=== PATIENT | female | born 1940 | race Caucasian/White ===

== ENCOUNTER 2016-04-20 12:02 | Outpatient (CLI) | payer MEDICARE, OTHER | END 2016-04-20 12:03 | disposition home or self-care (01) | DX: Z12.31 Encounter for screening mammogram for malignant neoplasm of breast (principal); Z80.3 Family history of malignant neoplasm of breast ==

== ENCOUNTER 2017-04-19 10:06 | Outpatient (CLI) | payer MEDICARE, OTHER ==
--- NOTE | 2017-04-20 13:35 | Mammography Report ---
DATE OF SERVICE: 04/19/2017 DIGITAL BILATERAL SCREENING MAMMOGRAM: 04/19/2017 COMPARISON: Mammogram 04/20/2016. INDICATION: Screening mammography. TECHNIQUE: Bilateral MLO and CC breast views. FINDINGS: The breast parenchyma is heterogeneously dense, which may limit the sensitivity of mammography. No dominant mass, architectural distortion, or concerning clustered microcalcifications are seen. IMPRESSION: BIRADS CATEGORY 1-NEGATIVE. RECOMMENDATION: ANNUAL SCREENING MAMMOGRAM. STANDARD QUALIFYING STATEMENTS: 1. This examination was reviewed with the aid of Computer-Aided Detection (CAD) . 2. A negative or benign imaging report should not delay biopsy if clinically suspicious findings are present. Consider surgical consultation if warranted. More than 5% of cancers are not identified by imaging. 3. Dense breasts may obscure an underlying neoplasm. TD: 04/20/2017 14:34 ALINA
== END 2017-04-19 10:07 | disposition home or self-care (01) ==
LOC: DI.S 10:06
PROVIDERS: ATTEND Internal Medicine
DX: Z12.31 Encounter for screening mammogram for malignant neoplasm of breast (principal)
CPT/HCPCS: 77067

== ENCOUNTER 2018-02-15 09:21 | Outpatient (CLI) | payer MEDICARE, OTHER ==
[2018-02-15 18:02] LABS: ALBUMIN 4.2 g/dL (3.2-5.5); ALBUMIN/GLOBULIN RATIO 1.8 (1.0-2.2); ALKALINE PHOSPHATASE 69 IU/L (42-121); ALT ALANINE AMINOTRANSFERASE 13 IU/L (10-60); AST ASPARTATE AMINOTRANSFERASE 18 IU/L (10-42); BILIRUBIN,TOTAL 0.9 mg/dL (0.2-1.0); BUN - BLOOD UREA NITROGEN 22 mg/dL (6-20); CARBON DIOXIDE - CO2 28 mmol/L (21-32); CHLORIDE 103 mmol/L (101-111); CHOL/HDL RATIO 3.5 (<4.4); CHOLESTEROL 216 mg/dL; CREATININE 0.8 mg/dL (0.4-1.0); GFR - MDRD 70 (>89); GLUCOSE 88 mg/dL (70-100); HDL CHOLESTEROL 62 mg/dL; LDL CHOLESTEROL,CALCULATED 145 mg/dL; LDL/HDL RATIO 2.3 (<4.4); SODIUM 138 mmol/L (135-145); TOTAL PROTEIN 6.6 g/dL (6.7-8.2); VLDL CHOLESTEROL 9 mg/dL
== END 2018-02-15 09:22 | disposition home or self-care (01) ==
LOC: LAB.F 09:21
PROVIDERS: ATTEND Internal Medicine
DX: E78.00 Pure hypercholesterolemia, unspecified (principal)
CPT/HCPCS: 36415; 80053; 80061; 83721

== ENCOUNTER 2018-07-15 15:59 | Outpatient (CLI) | payer MEDICARE, OTHER ==
--- NOTE | 2018-07-16 17:13 | Mammography Report ---
Reason: SCREENING MAMMO Procedure Date: 07/15/2018 Accession Number: [id number] / [id number] Procedure: SATINDER - Screening Mammo w/Andrés CPT Code: FULL RESULT: EXAM: Screening Mammo w/Andrés DATE: 07/15/2018 4:33 PM CLINICAL HISTORY: Routine screening. No reported personal history of breast cancer. Family history breast cancer in mother at age 72. TECHNIQUE: (B) - Bilateral Bilateral CC and MLO views were obtained. COMPARISON: 04/19/2017 through 09/02/2016 PARENCHYMAL PATTERN: (D) - The breasts demonstrate heterogeneously dense fibroglandular parenchyma bilaterally. FINDINGS: Bilateral breasts: There are no suspicious masses, calcifications, or areas of distortion. Stable mild left-sided nipple retraction. IMPRESSION: Benign findings. BI-RADS category 2 RECOMMENDATION: (ANNUAL) - Recommend routine annual screening mammography. BI-RADS CATEGORY: (2) - Benign Findings STANDARD QUALIFYING STATEMENTS: 1. This examination was not reviewed with the aid of Computer-Aided Detection (CAD). 2. A negative or benign imaging report should not preclude biopsy if clinically suspicious findings are present. 3. Dense breasts may obscure an underlying neoplasm. 4. This examination was reviewed with the aid of 3D breast imaging (tomosynthesis).
== END 2018-07-15 16:00 | disposition home or self-care (01) ==
LOC: DI 15:59
DX: Z12.31 Encounter for screening mammogram for malignant neoplasm of breast (principal); Z80.3 Family history of malignant neoplasm of breast
CPT/HCPCS: 77063; 77067

== ENCOUNTER 2018-10-19 17:31 | Emergency (ER) | payer MEDICARE, OTHER ==
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
[2018-10-19 18:33] LABS: BASOPHILS % (AUTO) 0.3 %; EOSINOPHILS # (AUTO) 0.2 10^3/uL (0.0-0.7); EOSINOPHILS % (AUTO) 2.5 %; LYMPHOCYTES # (AUTO) 1.4 10^3/uL (1.5-3.5); LYMPHOCYTES % (AUTO) 23.5 %; MEAN CORPUSCULAR HEMOGLOBIN 30.7 pg (27.0-31.0); MEAN CORPUSCULAR HGB CONC 32.3 g/dL (32.0-36.0); MEAN PLATELET VOLUME 8.5 fL (7.9-10.8); MONOCYTES # (AUTO) 0.6 10^3/uL (0.0-1.0); NEUTROPHILS # (AUTO) 3.9 10^3/uL (1.5-6.6); NEUTROPHILS % (AUTO) 64.5 %; PLT - PLATELET COUNT 242 10^3/uL (130-450); RED BLOOD COUNT 4.24 10^6/uL (4.20-5.40); RED CELL DISTRIBUTION WIDTH 13.3 % (12.0-15.0); WHITE BLOOD COUNT 6.1 x10^3/uL (4.8-10.8)
[2018-10-19 18:47] LABS: ALBUMIN 4.3 g/dL (3.2-5.5); ALBUMIN/GLOBULIN RATIO 1.5 (1.0-2.2); BILIRUBIN,TOTAL 0.6 mg/dL (0.2-1.0); CALCIUM 9.3 mg/dL (8.5-10.3); TOTAL PROTEIN 7.2 g/dL (6.7-8.2)
[2018-10-19 18:48] LABS: BILIRUBIN,URINE NEGATIVE (NEGATIVE); GLUCOSE, URINE (UA) NEGATIVE (NEGATIVE); KETONES,URINE (UA) NEGATIVE (NEGATIVE); LEUKOCYTE ESTERASE, URINE NEGATIVE (NEGATIVE); NITRITE,URINE NEGATIVE (NEGATIVE); OCCULT BLOOD,URINE NEGATIVE (NEGATIVE); PH,URINE 5.5 PH (5.0-7.5); PROTEIN,URINE NEGATIVE (NEGATIVE); UROBILINOGEN,URINE 0.2 (NORMAL) E.U./dL (NORMAL)
[2018-10-19 18:49] LABS: CLARITY,URINE CLEAR (CLEAR)
[2018-10-19 19:00] VITALS: BP 145/71
== END 2018-10-19 19:00 | disposition home or self-care (01) ==
LOC: ED 17:31
DX: T23.262A Burn of second degree of back of left hand, initial encounter (principal); T31.0 Burns involving less than 10% of body surface; X12.XXXA Contact with other hot fluids, initial encounter; R53.83 Other fatigue; I10 Essential (primary) hypertension; E78.00 Pure hypercholesterolemia, unspecified
CPT/HCPCS: 36415; 80053; 81001; 81003; 83690; 85025; 87086; 99282

== ENCOUNTER 2019-04-14 09:26 | Outpatient (CLI) | payer MEDICARE, OTHER ==
[2019-04-14 18:19] LABS: ALBUMIN 4.3 g/dL (3.2-5.5); ALBUMIN/GLOBULIN RATIO 1.5 (1.0-2.2); ALKALINE PHOSPHATASE 61 IU/L (42-121); ALT ALANINE AMINOTRANSFERASE 11 IU/L (10-60); AST ASPARTATE AMINOTRANSFERASE 17 IU/L (10-42); BILIRUBIN,TOTAL 0.7 mg/dL (0.2-1.0); BUN - BLOOD UREA NITROGEN 26 mg/dL (6-20); CALCIUM 9.5 mg/dL (8.5-10.3); CARBON DIOXIDE - CO2 28 mmol/L (21-32); CHLORIDE 102 mmol/L (101-111); CHOL/HDL RATIO 2.6 (<4.4); CHOLESTEROL 194 mg/dL; GFR - MDRD 54 (>89); GLUCOSE 88 mg/dL (70-100); HDL CHOLESTEROL 74 mg/dL; LDL CHOLESTEROL,CALCULATED 112 mg/dL; LDL/HDL RATIO 1.5 (<4.4); SODIUM 139 mmol/L (135-145); TOTAL PROTEIN 7.2 g/dL (6.7-8.2); VLDL CHOLESTEROL 8 mg/dL
== END 2019-04-14 09:27 | disposition home or self-care (01) ==
LOC: LAB.S 09:26
PROVIDERS: ATTEND Internal Medicine
DX: E78.00 Pure hypercholesterolemia, unspecified (principal)
CPT/HCPCS: 36415; 80053; 80061; 83721

== ENCOUNTER 2019-09-13 16:00 | Emergency (ER) | payer MEDICARE, OTHER ==
[2019-09-13 16:07] VITALS: BP 168/75
--- NOTE | 2019-09-13 16:28 | ED Physician Documentation ---
History of Present Illness - Stated complaint Stated Complaint: SINUS PX - Chief complaint Chief Complaint: Heent - History obtained from History obtained from: Patient - History of Present Illness Timing: How many days ago (4) Pain level max: 4 Pain level now: 3 - Additonal information Additional information: 78-year-old female presents with left-sided sinus pressure for the past 3 days. No fever. No cough. Has not taken anything for this. Nothing makes it better or worse. Review of Systems Constitutional: denies: Fever, Chills Respiratory: denies: Cough GI: denies: Vomiting, Diarrhea Skin: denies: Rash Musculoskeletal: denies: Neck pain, Back pain Neurologic: denies: Focal weakness, Numbness, Headache PD PAST MEDICAL HISTORY - Past Medical History Cardiovascular: Hypertension, High cholesterol Respiratory: None Neuro: None Endocrine/Autoimmune: None GI: None RECOOPERER: None : None HEENT: None Psych: None Musculoskeletal: Chronic back pain Derm: None - Past Surgical History Past Surgical History: Yes Ortho: Other - Present Medications Home Medications: Ambulatory Orders Medication Instructions Recorded Confirmed Aspirin 81 mg PO DAILY 12/18/15 12/18/15 Lovastatin [Altoprev] 40 mg PO DAILY 12/18/15 12/18/15 Nitrofurantoin Monohyd/M-Cryst 100 mg PO BID 5 Days capsule 12/18/15 [Macrobid 100 mg Capsule] Verapamil HCl [Verapamil ER] 240 mg PO DAILY 12/18/15 12/18/15 trandolapriL [Trandolapril] 4 mg PO DAILY 12/18/15 12/18/15 Cetirizine [ZyrTEC] 10 mg PO DAILY PRN #10 tablet 09/13/19 Fluticasone [Flonase] 1 sprays ALVARO BID PRN #1 bottle 09/13/19 - Allergies Allergies/Adverse Reactions: Allergies Allergy/AdvReac Type Severity Reaction Status Date / Time cephalexin monohydrate * AdvReac Cramps Verified 10/19/18 17:39 [From Keflex] - Social History Does the pt smoke?: No Smoking Status: Never smoker Does the pt drink ETOH?: No Does the pt have substance abuse?: No - Immunizations Immunizations are current?: Yes - POLST Patient has POLST: No PD ED PE NORMAL - Vitals Vital signs reviewed: Yes - General General: Alert and oriented X 3, No acute distress - HEENT HEENT: PERRL, Ears normal, Moist mucous membranes, Pharynx benign, Other (mild TTP L frontal sinus. o/w normal exam.) - Neck Neck: Supple, no meningeal sign - Cardiac Cardiac: RRR - Respiratory Respiratory: No respiratory distress, Clear bilaterally - Abdomen Abdomen: Soft, Non tender, Non distended - Derm Derm: Warm and dry - Neuro Neuro: Alert and oriented X 3 - Psych Psych: Normal mood, Normal affect Results - Vitals Vitals: Vital Signs - 24 hr 09/13/19 16:03 Temperature 36.7 C Heart Rate 71 Respiratory 16 Rate Blood Pressure 168/75 H O2 Saturation 97 Oxygen O2 Source Room air PD MEDICAL DECISION MAKING - ED course Complexity details: considered differential, d/w patient ED course: Patient with sinusitis. likely viral. We will treat with decongestants. She is well-appearing, nontoxic. No evidence of bacterial infection. Patient counseled regarding signs and symptoms for which I believe and urgent re- evaluation would be necessary. Patient with good understanding of and agreement to plan and is comfortable going home at this time This document was made in part using voice recognition software. While efforts are made to proofread this document, sound alike and grammatical errors may occur. Departure - Departure Disposition: 01 Home, Self Care Clinical Impression: Sinusitis Qualifiers: Sinusitis location: unspecified location Chronicity: acute Recurrence: non- recurrent Qualified Code(s): J01.90 - Acute sinusitis, unspecified Condition: Good Instructions: ED Sinusitis No Abx Follow-Up: Serafin Cottrell MD [Primary Care Provider] - Within 1 week Prescriptions: Cetirizine [ZyrTEC] 10 mg PO DAILY PRN #10 tablet PRN Reason: Nasal Congestion Fluticasone [Flonase] 1 sprays ALVARO BID PRN #1 bottle PRN Reason: Nasal Congestion Comments: Use the medications as prescribed. You should improve in the next 4 to 5 days. Return if you worsen. If you develop fevers or symptoms lasting longer than 10 days you may require an antibiotic.
== END 2019-09-13 16:37 | disposition home or self-care (01) ==
LOC: ED 16:00
DX: J01.90 Acute sinusitis, unspecified (principal); I10 Essential (primary) hypertension; Z79.82 Long term (current) use of aspirin
CPT/HCPCS: 99282; 99284

== ENCOUNTER 2019-10-20 14:49 | Outpatient (CLI) | payer MEDICARE, OTHER ==
--- NOTE | 2019-10-21 11:49 | Mammography Report ---
BILATERAL DIGITAL SCREENING MAMMOGRAM 3D/2D: 10/20/2019 CLINICAL: Routine screening. Comparison is made to exams dated: 07/15/2018 mammogram, 04/19/2017 mammogram, and 04/20/2016 mammogram - [facility]. The tissue of both breasts is heterogeneously dense. This may lower th e sensitivity of mammography. There is an irregular equal density asymmetry with an indistinct margin in the left breast at 5 o'atif ck middle depth. No other significant masses, calcifications, or other findings are seen in either breast. IMPRESSION: INCOMPLETE: NEEDS ADDITIONAL IMAGING EVALUATION The irregular equal density asymmetry in the left breast is indeterminate. Mediolateral and spot com pression views as well as additional views with possible ultrasound are recommended. This exam was interpreted at Station ID: [id number]. NOTE: For mammograms, a report in lay terms will be sent to the patient. Approximately 15% of breast malignancies will not be visualized mammographically. In the management of a palpable breast mass, a negative mammogram must not discourage biopsy of a clinically suspicious lesion. Electronically Signed By: Tip Santamaria M.D. ddyemi/penrad:10/20/2019 15:47:56 ACR BI-RADS Category 0: Incomplete 3340F PARENCHYMAL PATTERN: (D) - The breast(s) demonstrate(s) heterogeneously dense fibroglandular rachel talbot. BI-RADS CATEGORY: (0) - 0 Mammo and [place] [id number] Immediate follow-up LATERALITY: (B)
== END 2019-10-20 14:50 | disposition home or self-care (01) ==
LOC: DI 14:49
DX: Z12.31 Encounter for screening mammogram for malignant neoplasm of breast (principal)
CPT/HCPCS: 77063; 77067

== ENCOUNTER 2019-12-04 13:29 | Outpatient (CLI) | payer MEDICARE, OTHER ==
--- NOTE | 2019-12-05 08:09 | Mammography Report ---
UNILATERAL LEFT DIGITAL DIAGNOSTIC MAMMOGRAM 3D/2D: 12/04/2019 CLINICAL: Patient returns today to evaluate a density in the left breast. Comparison is made to exams dated: 10/20/2019 mammogram, 07/15/2018 mammogram, 04/19/2017 mammogram, and mammogram - [facility]. The tissue of left breast is heterogeneously dense . This may lower the sensitivity of mammography. There is a mass with a spiculated margin in the left breast at 6 o'clock middle depth. This is seen in additional views. No other significant masses or calcifications are seen in the breast. IMPRESSION: INCOMPLETE: NEEDS ADDITIONAL IMAGING EVALUATION The mass in the left breast is indeterminate. A targeted ultrasound of the left breast is recommended and will be performed immediately following this exam. This exam was interpreted at Station ID: [id number]. NOTE: For mammograms, a report in lay terms will be sent to the patient. Approximately 15% of breast malignancies will not be visualized mammographically. In the management of a palpable breast mass, a negative mammogram must not discourage biopsy of a clinically suspicious lesion. Electronically Signed By: Ashley Ritter M.D. lk/:12/04/2019 14:27:59 ACR BI-RADS Category 0: Incomplete 3340F PARENCHYMAL PATTERN: (D) - The breast(s) demonstrate(s) heterogeneously dense fibroglandular paryoandy talbot. BI-RADS CATEGORY: (0) - 0 RECOMMENDATION: (ADDMAM) - Recommend additional mammographic views. [id number] Immediate follow-up LATERALITY: (B)
--- NOTE | 2019-12-05 08:09 | Ultrasound Report ---
LIMITED ULTRASOUND OF LEFT BREAST: 12/04/2019 CLINICAL: Patient returns today to evaluate a focal asymmetry in the left breast. Comparison is made to exams dated: 12/04/2019 mammogram and 10/20/2019 mammogram - [facility]. Ultrasound of was performed on the area of interest. There is a 2.2 cm x 0.8 cm x 1.1 cm irregular mass in the left breast at 4 o'clock anterior depth. T his irregular mass is hypoechoic. This correlates with mammography findings. The left axilla was interogated and normal appearing lymph nodes are visualized. IMPRESSION: SUSPICIOUS OF MALIGNANCY No left axillary adenopathy. The 2.2 cm x 0.8 cm x 1.1 cm irregular mass in the left breast is at a moderate suspicion for maligna ncy. An ultrasound guided biopsy is recommended. This exam was interpreted at Station ID: [id number]. SUMMARY: This was discussed with the patient by the radiologist Dr. Beltran at the time of the exam. Electronically Signed By: Ashley Ritter M.D. lk/:12/04/2019 15:35:13 Ultrasound BI-RADS: 4b Moderate suspicion of malignancy BI-RADS CATEGORY: (4b) - Mod Susp Biopsy follow-up [id number] Immediate follow-up LATERALITY: (B)
== END 2019-12-04 13:30 | disposition home or self-care (01) ==
LOC: DI 13:29
PROVIDERS: ATTEND Internal Medicine
DX: N63.23 Unspecified lump in the left breast, lower outer quadrant (principal)
CPT/HCPCS: 76642

== ENCOUNTER 2020-02-10 14:41 | Outpatient (CLI) | payer MEDICARE, OTHER ==
--- NOTE | 2020-02-10 18:26 | XRAY Report ---
PROCEDURE: Mandible Bilat INDICATIONS: FACIAL PAIN, ATYPICAL TECHNIQUE: 3 views of the mandible were acquired. COMPARISON: None FINDINGS: Bones: No fractures or dislocations. There is an impacted left posterior mandibular molar with quest ionable surrounding ill-defined periapical lucency. Soft tissues: Visualized sinuses appear clear. No suspicious soft tissue densities. IMPRESSION: 1. No radiographic evidence of osseous metastases. 2. Possible periapical lucency around the left posterior mandibular impacted/unerupted molar. Dental consult recommended. Reviewed by: Zora Garrison MD on 02/10/2020 6:24 PM PDT Approved by: Zora Garrison MD on 02/10/2020 6:24 PM PDT Station ID: [id number]
== END 2020-02-10 14:42 | disposition home or self-care (01) ==
LOC: DI.S 14:41
PROVIDERS: ATTEND Internal Medicine
DX: G50.1 Atypical facial pain (principal)
CPT/HCPCS: 70110

== ENCOUNTER 2020-03-30 09:44 | Outpatient (CLI) | payer MEDICARE, OTHER ==
[2020-03-30 15:58] LABS: BASOPHILS % (AUTO) 0.4 %; EOSINOPHILS # (AUTO) 0.1 10^3/uL (0.0-0.7); EOSINOPHILS % (AUTO) 2.5 %; HGB - HEMOGLOBIN 12.7 g/dL (12.0-16.0); LYMPHOCYTES # (AUTO) 1.2 10^3/uL (1.5-3.5); LYMPHOCYTES % (AUTO) 25.4 %; MEAN CORPUSCULAR HEMOGLOBIN 31.8 pg (27.0-31.0); MEAN CORPUSCULAR HGB CONC 32.7 g/dL (32.0-36.0); MONOCYTES # (AUTO) 0.5 10^3/uL (0.0-1.0); MONOCYTES % (AUTO) 10.3 %; NEUTROPHILS % (AUTO) 61.2 %; PLT - PLATELET COUNT 298 10^3/uL (130-450); RED CELL DISTRIBUTION WIDTH 13.5 % (12.0-15.0); WHITE BLOOD COUNT 4.8 x10^3/uL (4.8-10.8)
[2020-03-30 16:09] LABS: ALBUMIN 4.1 g/dL (3.2-5.5); ALBUMIN/GLOBULIN RATIO 1.4 (1.0-2.2); ALKALINE PHOSPHATASE 55 IU/L (42-121); ALT ALANINE AMINOTRANSFERASE 14 IU/L (10-60); AST ASPARTATE AMINOTRANSFERASE 17 IU/L (10-42); BUN - BLOOD UREA NITROGEN 26 mg/dL (6-20); CALCIUM 9.4 mg/dL (8.5-10.3); CARBON DIOXIDE - CO2 26 mmol/L (21-32); CHLORIDE 104 mmol/L (101-111); CHOL/HDL RATIO 2.6 (<4.4); CHOLESTEROL 182 mg/dL; GLUCOSE 94 mg/dL (70-100); HDL CHOLESTEROL 70 mg/dL; LDL CHOLESTEROL,CALCULATED 102 mg/dL; LDL/HDL RATIO 1.5 (<4.4); SODIUM 139 mmol/L (135-145); VLDL CHOLESTEROL 10 mg/dL
== END 2020-03-30 09:45 | disposition home or self-care (01) ==
LOC: LAB.S 09:44
PROVIDERS: ATTEND Internal Medicine
DX: I10 Essential (primary) hypertension (principal)
CPT/HCPCS: 36415; 80053; 80061; 83721; 85025

== ENCOUNTER 2020-05-28 23:02 | Outpatient (CLI) | payer MEDICARE, OTHER | END 2020-05-28 23:03 | disposition critical access hospital (66) | LOC: EMS 23:02 | PROVIDERS: ATTEND Emergency Medicine | DX: R07.89 Other chest pain (principal); R51.9 Headache, unspecified | CPT/HCPCS: A0425; A0427 ==

== ENCOUNTER 2020-05-28 23:47 | Emergency (ER) | payer MEDICARE, OTHER ==
[2020-05-29 00:21] LABS: BASOPHILS % (AUTO) 0.2 %; EOSINOPHILS # (AUTO) 0.2 10^3/uL (0.0-0.7); EOSINOPHILS % (AUTO) 3.9 %; HGB - HEMOGLOBIN 13.6 g/dL (12.0-16.0); LYMPHOCYTES # (AUTO) 0.7 10^3/uL (1.5-3.5); LYMPHOCYTES % (AUTO) 15.1 %; MEAN CORPUSCULAR HEMOGLOBIN 31.2 pg (27.0-31.0); MEAN CORPUSCULAR HGB CONC 32.5 g/dL (32.0-36.0); MEAN CORPUSCULAR VOLUME 96.1 fL (81.0-99.0); MEAN PLATELET VOLUME 8.2 fL (7.9-10.8); MONOCYTES # (AUTO) 0.6 10^3/uL (0.0-1.0); MONOCYTES % (AUTO) 13.3 %; NEUTROPHILS # (AUTO) 3.2 10^3/uL (1.5-6.6); NEUTROPHILS % (AUTO) 67.1 %; PLT - PLATELET COUNT 201 10^3/uL (130-450); RED BLOOD COUNT 4.36 10^6/uL (4.20-5.40); RED CELL DISTRIBUTION WIDTH 13.2 % (12.0-15.0); WHITE BLOOD COUNT 4.8 x10^3/uL (4.8-10.8)
[2020-05-29 00:31] LABS: ALBUMIN 4.5 g/dL (3.2-5.5); ALBUMIN/GLOBULIN RATIO 1.4 (1.0-2.2); BILIRUBIN,TOTAL 0.7 mg/dL (0.2-1.0); CALCIUM 9.6 mg/dL (8.5-10.3); CREATININE 1.1 mg/dL (0.4-1.0); TOTAL PROTEIN 7.8 g/dL (6.7-8.2)
--- NOTE | 2020-05-29 00:33 | ED Physician Documentation ---
PD HPI CHEST PAIN - Stated complaint Stated Complaint: CP/ PAGE - Chief complaint Chief Complaint: Neuro - History obtained from History obtained from: Patient - History of Present Illness Timing - onset: Enter time (22:00), Other (tonight) Timing - onset during: Rest Timing - duration: Minutes Timing - details: Abrupt onset, Now resolved (chest pain), Still present in ED (PAGE) Quality: Pain Location: Substernal Radiation: No: Jaw, Neck, Back, Abdominal, Left upper extremity, Right upper extremity Improved by: Nothing Worsened by: Other (no exacerbating factors) Associated symptoms: Other (PAGE). No: Shortness of air, Diaphoresis, Nausea, Vomiting, Feeling faint / dizzy, General Weakness, Palpitations, Cough Similar symptoms before: Has not had sx before Recently seen: Not recently seen - Additional information Additional information: BIBA. tonight while lying in bed watching TV, patient had sudden onset midline chest pain and right-sided PAGE. denies having similar symptoms in the past. chest pain has resolved, mild PAGE persists. given NTG en route by medics and 81mg x 4 ASA. had negative stress test approximately 15 years ago and she has no known CAD Review of Systems Constitutional: reports: Reviewed and negative Eyes: reports: Reviewed and negative Cardiac: reports: Chest pain / pressure. denies: Palpitations, Pedal edema, Calf pain Respiratory: reports: Reviewed and negative GI: reports: Reviewed and negative Musculoskeletal: denies: Extremity swelling Neurologic: reports: Headache. 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 : None HEENT: None Psych: None Musculoskeletal: Chronic back pain Derm: None - Past Surgical History Past Surgical History: Yes Ortho: Other - Present Medications Home Medications: Ambulatory Orders Medication Instructions Recorded Confirmed Verapamil HCl [Verapamil ER] 240 mg PO DAILY 12/18/15 05/29/20 trandolapriL [Trandolapril] 4 mg PO DAILY 12/18/15 05/29/20 Pravastatin Sodium [Pravachol] 20 mg PO QPM 05/29/20 05/29/20 - Allergies Allergies/Adverse Reactions: Allergies Allergy/AdvReac Type Severity Reaction Status Date / Time cephalexin monohydrate * AdvReac Cramps Verified 05/28/20 23:55 [From Keflex] - Social History Does the pt smoke?: No Smoking Status: Never smoker Does the pt drink ETOH?: No Does the pt have substance abuse?: No - Immunizations Immunizations are current?: Yes - POLST Patient has POLST: No PD ED PE NORMAL - Vitals Vital signs reviewed: Yes - General General: Alert and oriented X 3, No acute distress, Well developed/nourished - HEENT HEENT: Moist mucous membranes - Neck Neck: Supple, no meningeal sign - Cardiac Cardiac: RRR, No murmur, No gallop, No rub - Respiratory Respiratory: No respiratory distress, Clear bilaterally - Abdomen Abdomen: Soft, Non tender - Derm Derm: Normal color, Warm and dry - Extremities Extremities: No edema Results - Vitals Vitals: Oxygen O2 Source Room air - EKG (time done) No standard instances Rate: Rate (enter#) (68) Rhythm: NSR [place]: Normal Intervals: Normal [place] QRS: Normal Ischemia: Normal ST segments - Labs Labs: Laboratory Tests 05/29/20 05/29/20 05/29/20 00:17 00:17 00:17 WBC 4.8 RBC 4.36 Hgb 13.6 Hct 41.9 MCV 96.1 MCH 31.2 H MCHC 32.5 RDW 13.2 Plt Count 201 MPV 8.2 Neut # (Auto) 3.2 Lymph # (Auto) 0.7 L [place] # (Auto) 0.6 Eos # (Auto) 0.2 Baso # (Auto) 0.0 Absolute Nucleated RBC 0.00 Nucleated RBC % 0.0 Sodium 137 Potassium 4.1 Chloride 99 L Carbon Dioxide 27 Anion Gap 11.0 BUN 27 H Creatinine 1.1 H Estimated GFR (MDRD) 48 L Glucose 103 H Calcium 9.6 Total Bilirubin 0.7 AST 18 ALT 15 Alkaline Phosphatase 63 Troponin I High Sens 8.2 Total Protein 7.8 Albumin 4.5 Globulin 3.3 Albumin/Globulin Ratio 1.4 Lipase 30 - Rads (name of study) chest xray Radiology: Prelim report reviewed, See rad report PD MEDICAL DECISION MAKING - ED course Complexity details: reviewed results, re-evaluated patient, considered differential, d/w patient ED course: remained chest pain free during ED stay and had only mild residual PAGE. reassuring test results including EKG, CXR, blood tests including negative high sensitivity troponin. results d/w patient. she is comfortable with d/c home, instructed to return if symptoms reoccur, follow up with primary care provider even if asymptomatic Departure - Departure Disposition: 01 Home, Self Care Clinical Impression: Chest pain Qualifiers: Chest pain type: unspecified Qualified Code(s): R07.9 - Chest pain, unspecified Condition: Good Instructions: ED Chest Pain Atypical Unkn Cause Follow-Up: Amauri Clay MD [Primary Care Provider] - Discharge Date/Time: 05/29/20 01:26
[2020-05-29 00:55] VITALS: BP 127/67
--- NOTE | 2020-05-29 10:06 | XRAY Report ---
PROCEDURE: Chest 1 View X-Ray INDICATIONS: Chest pain TECHNIQUE: One view of the chest was acquired. COMPARISON: None available FINDINGS: Surgical changes and devices: Left chest wall clips are seen. Lungs and pleura: No pleural effusions or pneumothorax. Lungs are clear. Mediastinum: The aorta is prominent and tortuous. The cardiac contours are within normal limits. Bones and chest wall: No suspicious bony lesions. There is a presumed right humeral head bone island . Age-appropriate degenerative changes are seen. Overlying soft tissues appear unremarkable. IMPRESSION: No acute abnormality can be seen on this portable chest study. Postoperative and degenerative changes are seen. Note: No significant discrepancy from the preliminary report. Reviewed by: Spencer Guajardo MD on 05/29/2020 9:05 AM [facility] Approved by: Spencer Guajardo MD on 05/29/2020 9:05 AM [facility] Station ID: [id number]
== END 2020-05-29 01:26 | disposition home or self-care (01) ==
LOC: EDUNIT# → ED 23:47 → SUPCPDRO 23:47 → ED 05-29 01:26
DX: R07.89 Other chest pain (principal); R51.9 Headache, unspecified; I10 Essential (primary) hypertension
CPT/HCPCS: 36415; 80053; 83690; 84484; 85025; 93005; 99284

== ENCOUNTER 2020-07-16 16:08 | Outpatient (CLI) | payer MEDICARE, OTHER ==
[2020-07-16 19:56] LABS: INR 1.1 (0.8-1.2); PT - PROTHROMBIN TIME 12.2 secs (9.9-12.6)
[2020-07-16 20:00] LABS: BASOPHILS % (AUTO) 0.6 %; EOSINOPHILS # (AUTO) 0.1 10^3/uL (0.0-0.7); EOSINOPHILS % (AUTO) 1.1 %; HCT - HEMATOCRIT 38.7 % (37.0-47.0); HGB - HEMOGLOBIN 12.7 g/dL (12.0-16.0); LYMPHOCYTES # (AUTO) 1.1 10^3/uL (1.5-3.5); LYMPHOCYTES % (AUTO) 20.1 %; MEAN CORPUSCULAR HEMOGLOBIN 31.1 pg (27.0-31.0); MEAN CORPUSCULAR HGB CONC 32.8 g/dL (32.0-36.0); MEAN CORPUSCULAR VOLUME 94.9 fL (81.0-99.0); MEAN PLATELET VOLUME 8.9 fL (7.9-10.8); MONOCYTES # (AUTO) 0.6 10^3/uL (0.0-1.0); MONOCYTES % (AUTO) 11.1 %; NEUTROPHILS # (AUTO) 3.6 10^3/uL (1.5-6.6); NEUTROPHILS % (AUTO) 66.9 %; PLT - PLATELET COUNT 242 10^3/uL (130-450); RED BLOOD COUNT 4.08 10^6/uL (4.20-5.40); RED CELL DISTRIBUTION WIDTH 13.4 % (12.0-15.0); WHITE BLOOD COUNT 5.3 x10^3/uL (4.8-10.8)
[2020-07-16 20:30] LABS: THYROID STIMULATING HORMONE 1.95 uIU/mL (0.34-5.60)
[2020-07-16 20:32] LABS: ALBUMIN 4.5 g/dL (3.2-5.5); ALBUMIN/GLOBULIN RATIO 1.8 (1.0-2.2); CALCIUM 9.4 mg/dL (8.5-10.3); POTASSIUM 4.3 mmol/L (3.5-5.0)
--- OUTSIDE RECORDS SUMMARY | 2020-07-21 02:12 | EXTERNAL MEDICAL SUMMARY RPT | Continuity of Care Document ---
:1940 Demographics Phone Unavailable Preferred Language Unknown Marital Status Unknown Rastafari Affiliation Unknown Race Unknown Ethnic Group Unknown Author Organization [facility] Address [address] [place] [address] Phone Social History date description facility [id number]
== END 2020-07-16 16:09 | disposition home or self-care (01) ==
LOC: LAB.S 16:08
PROVIDERS: ATTEND Internal Medicine
DX: I10 Essential (primary) hypertension (principal); R23.8 Other skin changes; L60.9 Nail disorder, unspecified; E78.00 Pure hypercholesterolemia, unspecified; M79.81 Nontraumatic hematoma of soft tissue
CPT/HCPCS: 36415; 80053; 84443; 85025; 85610

== ENCOUNTER 2020-08-26 08:00 | Outpatient (CLI) | payer MEDICARE, OTHER ==
--- NOTE | 2020-08-26 15:17 | XRAY Report ---
PROCEDURE: Knee 3 View RT INDICATIONS: DJD, RIGHT KNEE TECHNIQUE: 3 views of the right knee(s) were acquired. COMPARISON: None. FINDINGS: Bones: No fractures or dislocations. No suspicious bony lesions. There is mild medial and patellofe moral compartment narrowing with minimal periarticular osteophytes. No erosions. Soft tissues: Mild joint effusion. No suspicious soft tissue calcifications. IMPRESSION: Mild medial and patellofemoral arthritic change. Reviewed by: Princess Norton MD on 08/26/2020 3:15 PM PDT Approved by: Princess Norton MD on 08/26/2020 3:15 PM PDT Station ID: [id number]
== END 2020-08-26 23:59 | disposition home or self-care (01) ==
LOC: DI.S 08:00
PROVIDERS: ATTEND Emergency Medicine
DX: M17.11 Unilateral primary osteoarthritis, right knee (principal)

== ENCOUNTER 2021-01-05 08:46 | Outpatient (CLI) | payer MEDICARE, OTHER ==
[2021-01-05 14:34] LABS: ALBUMIN 4.2 g/dL (3.2-5.5); ALBUMIN/GLOBULIN RATIO 1.6 (1.0-2.2); BILIRUBIN,TOTAL 0.9 mg/dL (0.2-1.0); CALCIUM 9.3 mg/dL (8.5-10.3); POTASSIUM 4.4 mmol/L (3.5-5.0); TOTAL PROTEIN 6.8 g/dL (6.7-8.2)
[2021-01-05 14:42] LABS: BASOPHILS % (AUTO) 0.7 %; EOSINOPHILS # (AUTO) 0.3 10^3/uL (0.0-0.7); EOSINOPHILS % (AUTO) 5.7 %; HCT - HEMATOCRIT 37.3 % (37.0-47.0); LYMPHOCYTES % (AUTO) 23.2 %; MEAN CORPUSCULAR HEMOGLOBIN 31.3 pg (27.0-31.0); MEAN CORPUSCULAR HGB CONC 32.2 g/dL (32.0-36.0); MEAN CORPUSCULAR VOLUME 97.1 fL (81.0-99.0); MEAN PLATELET VOLUME 9.1 fL (7.9-10.8); MONOCYTES # (AUTO) 0.5 10^3/uL (0.0-1.0); MONOCYTES % (AUTO) 12.3 %; NEUTROPHILS # (AUTO) 2.6 10^3/uL (1.5-6.6); NEUTROPHILS % (AUTO) 57.9 %; PLT - PLATELET COUNT 231 10^3/uL (130-450); RED BLOOD COUNT 3.84 10^6/uL (4.20-5.40); RED CELL DISTRIBUTION WIDTH 13.3 % (12.0-15.0); WHITE BLOOD COUNT 4.4 x10^3/uL (4.8-10.8)
== END 2021-01-05 08:47 | disposition home or self-care (01) ==
LOC: LAB.S 08:46
PROVIDERS: ATTEND Internal Medicine
DX: I10 Essential (primary) hypertension (principal)
CPT/HCPCS: 36415; 80053; 85025

== ENCOUNTER 2021-10-25 20:23 | Outpatient (CLI) | payer MEDICARE, OTHER | END 2021-10-25 20:24 | disposition EMS.NT | LOC: EMS 20:23 | DX: R11.0 Nausea (principal) ==

== ENCOUNTER 2021-12-22 12:29 | Outpatient (CLI) | payer MEDICARE, BC ==
[~2021-12-22 12:29] MED LIST: GADOBUTROL 7.5 MMOL/7.5 ML VIAL ONE
[2021-12-22] MEDS ORDERED: GADOBUTROL 7.5 MMOL/7.5 ML VIAL IVP ONE (16:03)
--- NOTE | 2021-12-22 18:17 | MRI Report ---
PROCEDURE: Lumbar Spine W/WO INDICATIONS: BILATERAL SCIATICA CONTRAST: IV CONTRAST: Gadavist ml: 5.9 TECHNIQUE: Noncontrast sagittal T1 spin echo and T2 fast spin echo, sagittal STIR, axial T1 and T2 fast spin ech o through the lumbar spine. In cases with scoliosis, additional coronal T2 fast spin echo may be per formed. After the administration of contrast, sagittal and axial T1 spin echo with fat saturation th rough the lumbar spine. COMPARISON: None. FINDINGS: Image quality: Excellent. Alignment and curvature: There is normal bony alignment. Marrow: Decompressive laminectomies noted at L2 and L3. In interbody fusion at L3-4 with posterior ro d and screw instrumentation at L4-5 and left lateral instrumentation at L3-4. Spinal cord: Conus medullaris terminates at the level. Visualized spinal cord demonstrates normal signal, without suspicious enhancement. Paraspinous soft tissues: No paravertebral masses or abnormal enhancement. Right renal cyst noted. T12-L1: Normal in appearance. L1-L2: Disc space narrowing and posterior disc bulge, hypertrophic facet joints and the mentum fla vum laxity results in severe central stenosis. Moderate bilateral foraminal stenosis L2-L3: Disc space narrowing and cervical disc bulge present. No central stenosis. Severe bilateral foraminal stenosis. L3-L4: Discectomy and fusion. No central stenosis. Moderate to severe bilateral foraminal stenosis present. L4-L5: Circumferential disc bulge present. No central stenosis. Mild bilateral foraminal stenosis L5-S1: Circumferential disc bulge. Disc height is maintained. No central stenosis. No foraminal alyssa nosis. IMPRESSION: Degenerative disc disease and arthropathy at L1-2 results in severe central and moderate bilateral fo raminal stenosis. Decompressive laminectomies L2-L3 with interbody fusion at L3-4 and instrumentation at L3-4 and L4-5. Reviewed by: Ubaldo Bourgeois MD on 12/22/2021 5:16 PM EMELYN Approved by: Ubaldo Bourgeois MD on 12/22/2021 5:16 PM AKSHANI Station ID: [id number]
== END 2021-12-22 12:30 | disposition home or self-care (01) ==
LOC: DI 12:29
PROVIDERS: ATTEND Internal Medicine
DX: M47.816 Spondylosis without myelopathy or radiculopathy, lumbar region (principal); M48.061 Spinal stenosis, lumbar region without neurogenic claudication; Z98.1 Arthrodesis status
CPT/HCPCS: 72158; A9585

== ENCOUNTER 2022-05-19 09:06 | Outpatient (CLI) | payer MEDICARE, OTHER ==
--- NOTE | 2022-05-19 12:02 | CT Report ---
PROCEDURE: LUMBAR SPINE WO INDICATIONS: LUMBAR STENOISIS TECHNIQUE: Noncontrast 3 mm thick sections acquired from the T12 level to the sacrum. Sagittal and coronal refo rmats were constructed. For radiation dose reduction, the following was used: automated exposure co ntrol, adjustment of mA and/or kV according to patient size. COMPARISON: None. FINDINGS: Image quality: Excellent. Bones: Postoperative changes of ACDF at L3-4 and posterior fixation at L4-5. No acute vertebral body compression fractures. No suspicious lytic or blastic bony lesions. Central spinal caliber is of n ormal overall caliber. No pars defects. T12-L1: No disc space narrowing. No significant disc bulge. The foramina and central canal are paten t. L1-L2: Diffuse disc bulge and facet hypertrophy cause severe bilateral foraminal stenosis. The verónica tral canal has severe stenosis. L2-L3: Disc space narrowing and disc osteophytes. Status post laminectomy at this level. The varsha shahnaz have moderate bilateral foraminal stenosis. The central canal is patent. L3-L4: Postoperative changes of discectomy. There are disc osteophytes and facet hypertrophy causin g moderate bilateral foraminal stenosis. Status post laminectomy at this level. The central canal is patent. L4-L5: Mild grade 1 anterolisthesis. The foramina and central canal are patent. L5-S1: Diffuse disc bulge with no significant foraminal or central canal stenosis. Soft tissues: No retroperitoneal masses or hematomas. Visualized aorta is normal in caliber. IMPRESSION: 1. Postoperative changes without hardware complication. 2. L1-2 degenerative disc disease causing severe bilateral foraminal stenosis and severe central suyapa l stenosis. Reviewed by: Naseem Clinton on 05/19/2022 12:00 PM PST Approved by: Naseem Clinton on 05/19/2022 12:00 PM PST Station ID: [id number]
--- NOTE | 2022-05-19 12:24 | XRAY Report ---
PROCEDURE: Lumbar Spine Complete INDICATIONS: BILATERAL LEG PAIN TECHNIQUE: 5 views of the lumbar spine were acquired. COMPARISON: None. FINDINGS: Bones: 5 spa-oun-souxosb vertebrae are present. Pedicular screws in L4 and L5 are seen without rods . There has been discectomy at L3-4. No vertebral body height loss. Disc space narrowing at L1-2 and L2-3, worse at L2-3. No instability with flexion or extension. Sacroiliac joints have mild degenerati ve changes. Anterolisthesis of L3-4. Soft tissues: Overlying bowel gas pattern is normal. No suspicious soft tissue calcifications. The aorta has atherosclerotic calcifications. IMPRESSION: 1. Postoperative changes from L3 through L5. 2. Disc disease of L1-2 and L2-3. 3. Anterolisthesis of L3-4. 4. Full range of motion with no instability with flexion or extension. Reviewed by: Naseem Clinton on 05/19/2022 12:22 PM PST Approved by: Naseem Clinton on 05/19/2022 12:22 PM PST Station ID: [id number]
== END 2022-05-19 09:07 | disposition home or self-care (01) ==
LOC: DI 09:06
PROVIDERS: ATTEND Neurological Surgery
DX: Z01.818 Encounter for other preprocedural examination (principal); M51.36 Other intervertebral disc degeneration, lumbar region; M47.816 Spondylosis without myelopathy or radiculopathy, lumbar region; M48.061 Spinal stenosis, lumbar region without neurogenic claudication; M43.16 Spondylolisthesis, lumbar region

== ENCOUNTER 2022-05-19 09:09 | Outpatient (CLI) | payer MEDICARE, BC ==
--- NOTE | 2022-05-19 10:48 | DEXA Report ---
PROCEDURE: Dexa Spine and/or Hip INDICATIONS: POST MENOPAUSAL TECHNIQUE: Dual energy x-ray absorptiometry (DXA) was performed on a Lob System. Regions measur ed are the AP Spine, femoral neck, and if needed forearm. COMPARISON: None. FINDINGS: Left Femoral Neck: Bone Mineral Density 0.66 g/cm/cm, T score -2.8, Left Hip: Bone Mineral Density 0.70 g/cm/cm,T score -2.4, Left forearm: Bone Mineral Density 0.4 to g/cm/cm, T score -4.2, (T score greater or equal to -1.0: NORMAL) (T score from -1.1 to -2.4: OSTEOPENIA) (T score less than or equal to -2.5 to: OSTEOPOROSIS) Impression: Osteoporosis of the left femoral neck and forearm, significantly elevated fracture risk. Osteopenia o f the left hip. Patients with diagnosis of osteoporosis or osteopenia should have regular bone mineral density assess ment. For those eligible for Medicare, routine testing is allowed once every 2 years. Testing frequ ency can be increased for patients who have rapidly progressing disease or for those who are receivin g medical therapy to restore bone mass. Reviewed by: Victor M Arguelles MD on 05/19/2022 10:47 AM PST Approved by: Victor M Arguelles MD on 05/19/2022 10:47 AM PST Station ID: [id number]
== END 2022-05-19 09:10 | disposition home or self-care (01) ==
LOC: DI 09:09
PROVIDERS: ATTEND Internal Medicine
DX: M81.0 Age-related osteoporosis without current pathological fracture (principal); Z78.0 Asymptomatic menopausal state

== ENCOUNTER 2022-10-03 14:46 | Outpatient (CLI) | payer MEDICARE, OTHER | END 2022-10-03 23:59 | disposition critical access hospital (66) | LOC: EMS 14:46 | DX: R06.02 Shortness of breath (principal); R06.2 Wheezing; R05.9 Cough, unspecified | CPT/HCPCS: A0425; A0427 ==

== ENCOUNTER 2022-10-03 15:20 | Inpatient (IN) | payer MEDICARE, OTHER ==
--- NOTE | 2022-10-03 15:23 | ED Physician Documentation ---
PD HPI DYSPNEA - Stated complaint Stated Complaint: SOA/WHEEZING - History obtained from History obtained from: Patient, EMS - History of Present Illness Timing - onset: How many days ago (4-5) Timing - onset during: Light activity Timing - duration: Days (4-5) Timing - details: Gradual onset, Still present Inciting event(s): URI. No: Out of meds Improved by: Inhaler/neb, Rest Worsened by: Exertion, Coughing Associated symptoms: Fever, Cough, Wheezing, Chest pain / discomfort. No: Hemoptysis, Bilateral edema Similar symptoms before: Has not had sx before (denies history of asthma nor COPD. Remote history of smoking (duration 40 years, quit or such).) Recently seen: Clinic (went to walk in and there found to be wheezing and sats 83% RA.) Review of Systems Constitutional: reports: Fever, Chills, Myalgias Nose: reports: Rhinorrhea / runny nose, Congestion Throat: denies: Sore throat Cardiac: denies: Chest pain / pressure, Palpitations Respiratory: reports: Dyspnea, Cough, Wheezing GI: reports: Nausea. denies: Abdominal Pain, Vomiting, Diarrhea Skin: denies: Rash Neurologic: denies: Altered mental status, Headache PD PAST MEDICAL HISTORY - Past Medical History Cardiovascular: Hypertension, High cholesterol Respiratory: None, Other (denies history of COPD/asthma. She states she is active with golfing and exercise without dyspnea/wheezing. 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 : None HEENT: None Psych: None Musculoskeletal: Chronic back pain Derm: None - Past Surgical History Past Surgical History: Yes Ortho: Other - Present Medications Home Medications: Ambulatory Orders Medication Instructions Recorded Confirmed Verapamil HCl [Verapamil ER] 240 mg PO DAILY 12/18/15 05/29/20 trandolapriL [Trandolapril] 4 mg PO DAILY 12/18/15 05/29/20 Pravastatin Sodium [Pravachol] 20 mg PO QPM 05/29/20 05/29/20 - Allergies Allergies/Adverse Reactions: Allergies Allergy/AdvReac Type Severity Reaction Status Date / Time cephalexin monohydrate * AdvReac Cramps Verified 05/28/20 23:55 [From Keflex] - Social History Does the pt smoke?: No Smoking Status: Never smoker Does the pt drink ETOH?: No Does the pt have substance abuse?: No - Immunizations Immunizations are current?: Yes - POLST Patient has POLST: No PD ED PE NORMAL - Vitals Vital signs reviewed: Yes - General General: Alert and oriented X 3, Well developed/nourished, Other (Initially with some work of breathing and prolonged expiratory phase with wheezing.) - Neck Neck: Supple, no meningeal sign, No adenopathy - Cardiac Cardiac: No murmur. No: RRR (tachycardic but regular) - Respiratory Respiratory: No: Clear bilaterally (coarse central bronchial sounds, hoarse cough. Diffuse exp weehzing. ) - Abdomen Abdomen: Soft, Non tender - Extremities Extremities: No edema, No calf tenderness / cord Results - Vitals Vitals: Vital Signs - 24 hr 10/03/22 10/03/22 10/03/22 15:20 15:34 15:59 Temperature 37.6 C Heart Rate 112 H 118 H 100 Respiratory 30 H 20 16 Rate Blood Pressure 178/72 H O2 Saturation 93 97 94 If not protocol : Oxygen Flow, liters/minute 10/03/22 10/03/22 10/03/22 16:08 16:11 16:28 Temperature Heart Rate 104 H 102 H Respiratory 17 18 14 Rate Blood Pressure 137/56 H O2 Saturation 95 If not protocol 2 : Oxygen Flow, liters/minute 10/03/22 10/03/22 10/03/22 17:22 17:37 17:55 Temperature Heart Rate 101 H 100 100 Respiratory 18 18 19 Rate Blood Pressure 145/64 H 121/53 L O2 Saturation 93 94 If not protocol 2 2 2 : Oxygen Flow, liters/minute 10/03/22 10/03/22 10/03/22 18:38 18:50 19:29 Temperature Heart Rate 123 H 119 H Respiratory 23 19 16 Rate Blood Pressure 143/59 H 148/60 H O2 Saturation 85 L 94 If not protocol 2 : Oxygen Flow, liters/minute Oxygen O2 Source Nasal cannula Oxygen Flow Rate 2 - EKG (time done) 15:23 EKG releavant findings:: EKG personally interpreted by author of this note. Relevant findings are: Rate: Rate (enter#) (108) Rhythm: Sinus tachycardia [place]: Normal Intervals: Normal AL QRS: Normal Ischemia: Normal ST segments. No: ST elevation c/w ischemia, ST depression Compare to prior EKG: Old EKG unavailable - Labs Labs: Laboratory Tests 10/03/22 10/03/22 10/03/22 15:50 18:54 18:54 WBC 8.3 RBC 4.10 L Hgb 12.7 Hct 38.6 MCV 94.1 MCH 31.0 MCHC 32.9 RDW 13.1 Plt Count 211 MPV 8.5 Neut # (Auto) 7.7 H Lymph # (Auto) 0.5 L [place] # (Auto) 0.1 Eos # (Auto) 0.0 Baso # (Auto) 0.0 Absolute Nucleated RBC 0.00 Nucleated RBC % 0.0 Sodium 137 Potassium 2.8 L Chloride 100 L Carbon Dioxide 25 Anion Gap 12.0 BUN 22 H Creatinine 1.1 H Estimated GFR (MDRD) 48 L Glucose 307 H Calcium 8.7 Total Bilirubin 0.5 AST 23 ALT 13 Alkaline Phosphatase 53 Total Protein 7.2 Albumin 3.8 Globulin 3.4 Albumin/Globulin Ratio 1.1 Lipase 24 Nasal Adenovirus (PCR) NOT DETECTED Nasal B. parapertussis DNA (PCR) NOT DETECTED Nasal Coronavir 229E PCR NOT DETECTED Nasal Coronavir HKU1 PCR NOT DETECTED Nasal Coronavir NL63 PCR NOT DETECTED Nasal Coronavir OC43 PCR NOT DETECTED Nasal Enterovir/Rhinovir PCR DETECTED A Nasal Influenza B PCR NOT DETECTED Nasal Influenza A PCR NOT DETECTED Nasal Parainfluen 1 PCR NOT DETECTED Nasal Parainfluen 2 PCR NOT DETECTED Nasal Parainfluen 3 PCR NOT DETECTED Nasal Parainfluen 4 PCR NOT DETECTED Nasal RSV (PCR) NOT DETECTED Nasal B.pertussis DNA PCR NOT DETECTED Nasal C.pneumoniae (PCR) NOT DETECTED Jong Human Metapneumo PCR NOT DETECTED Nasal M.pneumoniae (PCR) NOT DETECTED Nasal SARS-CoV-2 (PCR) NOT DETECTED - Rads (name of study) chest xray Relevant Findings:: Prelim report reviewed, EMP independent interpretation of test (no infiltrates.), See rad report PD Medical Decision Making - ED course Complexity details: considered differential, d/w patient ED course: The patient has upper respiratory viral type symptoms for a few days that has progressed with wheezing and hoarse cough. She was feeling quite short of breath and went to the walk-in clinic. Found to be hypoxic at 83%. Nebulizer treatment on route by EMS. Here she received 2 more nebulizer treatments and is adequately oxygenated with just nasal cannula. However off the nasal cannula she still goes to 85 to 88%. She was given Decadron and repeat nebulizer treatments. Consideration for antibiotic even with the positive test for viral illness given that she likely has some undiagnosed COPD. The patient is comfortable without any respiratory distress at this point. I did talk with the nighttime hospitalist and they will admit the patient to the hospital. Potassium level was returned at 2.8 will give supplemental potassium. Departure - Departure Disposition: [facility] DC/Xfer Clinical Impression: Viral URI with cough, Wheezing, Hypoxia Condition: Stable Record reviewed to determine appropriate education?: Yes Discharge Date/Time: 10/03/22 20:27
--- OUTSIDE RECORDS SUMMARY | 2022-10-03 15:48 | EXTERNAL MEDICAL SUMMARY RPT | Continuity of Care Document ---
Author Name Unknown Address [address] [place] [address] Phone Organization [facility] Address [address] [phone] Phone Care Team Providers Care Prosthetic Aides Teacher Name Role Phone Anitra Patient RegistrarCindy Unavailable Unavailable Medications date description facility 2022-10-03 00:00 [facility] 2022-10-03 00:00 [facility]rim[facility] [place] 2022-10-03 00:00 [facility]rimazole [facility] [place]
[2022-10-03] MEDS ORDERED: ALBUTEROL NEB 2.5 MG/3 ML INH STA (15:49)
[2022-10-03] MEDS ORDERED: dexAMETHasone 4 MG TABLET PO STA (15:49)
--- NOTE | 2022-10-03 16:16 | XRAY Report ---
PROCEDURE: Chest 1 View X-Ray INDICATIONS: chest pain TECHNIQUE: One view of the chest was acquired. COMPARISON: None. FINDINGS: Surgical changes and devices: Surgical clips are noted in left breast and left axilla. Lungs and pleura: No pleural effusions or pneumothorax. Lungs are clear. Mediastinum: Mediastinal contours appear normal. Heart size is normal. Bones and chest wall: No suspicious bony lesions. Overlying soft tissues appear unremarkable. IMPRESSION: No acute cardiopulmonary process. Reviewed by: Crispin Mancilla MD on 10/03/2022 4:14 PM PDT Approved by: Crispin Mancilla MD on 10/03/2022 4:14 PM PDT Station ID: [id number]
[2022-10-03 16:57] LABS: B. PARAPERTUSSIS- RESP PCR PAN NOT DETECTED; B. PERTUSSIS- RESP PCR PANEL NOT DETECTED; C. PNEUMONIAE- RESP PCR PANEL NOT DETECTED; CORONAVIRUS 229E-RESP PCR NOT DETECTED; CORONAVIRUS HKU1-RESP PCR NOT DETECTED; CORONAVIRUS NL63-RESP PCR NOT DETECTED; CORONAVIRUS OC43-RESP PCR NOT DETECTED; HUMAN METAPNEUMOVIRUS NOT DETECTED; INFLUENZA A- RESP PCR PANEL NOT DETECTED; INFLUENZA B - RESP PCR PANEL NOT DETECTED; M. PNEUMONIAE- RESP PCR PANEL NOT DETECTED; PARAINFLUENZA VIRUS 1 NOT DETECTED; PARAINFLUENZA VIRUS 2 NOT DETECTED; PARAINFLUENZA VIRUS 3 NOT DETECTED; PARAINFLUENZA VIRUS 4 NOT DETECTED; RHINOVIRUS/ENTEROVIRUS DETECTED; RSV- RESP PCR PANEL NOT DETECTED; SARS-CoV-2 -RESP PCR PANEL NOT DETECTED
[2022-10-03] MEDS ORDERED: IPRATROPIUM/ALBUTEROL 3 ML NEB INH STA (17:09)
[2022-10-03 18:59] LABS: BASOPHILS % (AUTO) 0.1 %; HCT - HEMATOCRIT 38.6 % (37.0-47.0); HGB - HEMOGLOBIN 12.7 g/dL (12.0-16.0); LYMPHOCYTES # (AUTO) 0.5 10^3/uL (1.5-3.5); LYMPHOCYTES % (AUTO) 5.6 %; MEAN CORPUSCULAR HGB CONC 32.9 g/dL (32.0-36.0); MEAN CORPUSCULAR VOLUME 94.1 fL (81.0-99.0); MEAN PLATELET VOLUME 8.5 fL (7.9-10.8); MONOCYTES # (AUTO) 0.1 10^3/uL (0.0-1.0); MONOCYTES % (AUTO) 0.8 %; NEUTROPHILS # (AUTO) 7.7 10^3/uL (1.5-6.6); PLT - PLATELET COUNT 211 10^3/uL (130-450); RED CELL DISTRIBUTION WIDTH 13.1 % (12.0-15.0); WHITE BLOOD COUNT 8.3 x10^3/uL (4.8-10.8)
[2022-10-03 19:12] LABS: ALBUMIN 3.8 g/dL (3.2-5.5); ALBUMIN/GLOBULIN RATIO 1.1 (1.0-2.2); BILIRUBIN,TOTAL 0.5 mg/dL (0.2-1.0); CALCIUM 8.7 mg/dL (8.5-10.3); CREATININE 1.1 mg/dL (0.4-1.0); POTASSIUM 2.8 mmol/L (3.5-5.0); TOTAL PROTEIN 7.2 g/dL (6.7-8.2)
[2022-10-03] MEDS ORDERED: POTASSIUM CHLOR 10 MEQ/100 ML 10 MEQ/100 ML BAG IV ONE (19:20)
[2022-10-03] MEDS ORDERED: POTASSIUM BICARB 25 MEQ TABLET PO STA (19:20)
--- NOTE | 2022-10-03 19:26 | HISTORY & PHYSICAL EXAMINATION ---
Chief Complaint - Chief Complaint Chief Complaint: Cough, Shortness of breath History of Present Illness - Admitted From Admitted From:: ER - History Obtained From Records Reviewed: Yes History obtained from: Pt, staff, chart Exam Limitations: H&P was conducted via video remotely, using Access Cart. - History of Present Illness HPI Comment/Other: Patient is in [place]. Physician is in [place]. No one is at bedside. 81 yo F with PMH of HTN, HLD, chronic LBP, and former smoker presented to the ER from Walk-in clinic due to Hypoxia with c/o 4 day h/o URI symptoms and Shortness of breath. At baseline, pt does not feel short of breath unless she walks up steep hills. On Sunday, she began to have a sore throat. On Sunday, she had coryza/sneezing. On Sunday, she began to cough, no sputum, +chest congestion. She coughed all night long, so went to a Walk-in clinic today. Her SpO2 was 83% RA. They gave her a Duoneb and sent her to the ER. Pt says that she does not feel short of breath. She did smoke from age [age]/for 42 years; she smoked 1.5 ppd. She quit in 1983/39 years ago. Pt denies other symptoms. No N/V/abdo pain. No F/C. No BM change. No urinary symptoms. No CP. No known h/o DM. In the ER, BP 178/72, HR 112, SpO2 85% RA, 95% 2L NC O2, K 2.8, Rhinovirus +, K 2.8, Glc 307. CXR: NAD EKG: Sinus Tachy at 108, no STTw changes. Pt was given Duonebs, Decadron 8 mg PO x 1, KCl 10 mEq IV in the ER. 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 : reports: None HEENT: reports: None Psych: reports: None Musculoskeletal: reports: Chronic back pain Derm: reports: None MRSA Hx?: No - Past Surgical History Ortho: reports: Other - POLST Patient has POLST: No Meds/Allgy - Home Medications Home Medications: Ambulatory Orders Medication Instructions Recorded Confirmed Verapamil HCl [Verapamil ER] 240 mg PO DAILY 12/18/15 05/29/20 trandolapriL [Trandolapril] 4 mg PO DAILY 12/18/15 05/29/20 Pravastatin Sodium [Pravachol] 20 mg PO QPM 05/29/20 05/29/20 - Allergies Allergies/Adverse Reactions: Allergies Allergy/AdvReac Type Severity Reaction Status Date / Time cephalexin monohydrate * AdvReac Cramps Verified 05/28/20 23:55 [From Keflex] Review of Systems - All Other Systems All Other Systems: reports: Reviewed and negative Exam - Vital Signs Reviewed Vital Signs: Yes Vital Signs: Vital Signs x48h Temp Pulse Resp BP Pulse Ox O2 Flow Rate 10/03/22 18:50 19 10/03/22 18:38 123 H 23 143/59 H 85 L 10/03/22 17:55 100 19 121/53 L 94 2 10/03/22 17:37 100 18 2 10/03/22 17:22 101 H 18 145/64 H 93 2 10/03/22 16:28 102 H 14 137/56 H 95 2 10/03/22 16:11 104 H 18 10/03/22 16:08 17 10/03/22 15:59 100 16 94 10/03/22 15:34 118 H 20 97 10/03/22 15:20 37.6 C 112 H 30 H 178/72 H 93 - Physical Exam General Appearance: positive: No acute distress Eyes Bilateral: positive: PERRL, No scleral icterus ENT: positive: No signs of dehydration Respiratory: positive: Other (Access cart stethoscope not working; per ER Provider: +coarse BS, diffuse wheezing) Cardiovascular: positive: Other (Access cart stethoscope not working; per ER Provider: RR, Tachy, no murmurs) Abdomen: positive: Other (per ER Provider: non-distended, NT, Soft) Skin: positive: No rash Extremities: positive: No pedal edema Neurologic/Psychiatric: positive: Oriented x3, CN's nml (2-12), Mood/affect nml Conclusion/Plan - Problem List (1) Hypoxia Conclusion/Plan: COPD Exacerbation Hypoxia Former smoker Cough Rhinovirus Infection Tachycardia -HR 112, SpO2 85% RA, 95% 2L NC O2, Rhinovirus + -CXR: NAD -EKG: Sinus Tachy at 108, no STTw changes. -Pt was given Duonebs, Decadron 8 mg PO x 1 in the ER. -admit to Med tele -continue O2 support -continue Duonebs PRN; add steroid MDI -SoluMedrol 40 mg IV daily -pt is allergic to Cephalosporins; LVQ ordered -it is possible that pt has chronic hypoxia that she tolerates and she may be a candidate for home O2; will need home O2 test upon discharge Hypokalemia -K 2.8, -Pt was given KCl 10 mEq IV in the ER. -KCl 40 meQ IV ordered -supplement PRN -check Mag Hyperglycemia No known h/o DM -Glc 307 -most likely has undx'd DM 2 -accuchecks, SS Insulin, Hypoglycemic protocol -check Hgba1c HTN HLD -BP 178/72 -would continue home medications: Verapamil, Trandolapril, Pravastatin, but EMR will not let me reconcile until meds are confirmed -med rec when available -Hydralazine PRN Chronic LBP Insomnia -continue home medications: Gabapentin; pt says that she take Gabapentin 300 mg PO QHS; ordered. VTE Prophylaxis: Lovenox Code Status: D/W pt; she is DNR/DNI ~Mignon Ty MD Hospitalist - Lab Results Lab results reviewed: Yes Fish Bones: 10/03/22 18:54 10/03/22 18:54
[2022-10-03] MEDS ORDERED: SODIUM CHLORIDE FLUSH 0.9% 10 ML SYRINGE IVP PRN (19:37)
[2022-10-03] MEDS ORDERED: ONDANSETRON 4 MG/2 ML VIAL IVP PRN (19:37)
[2022-10-03] MEDS ORDERED: ACETAMINOPHEN 325 MG TABLET PO PRN (19:37)
[2022-10-03] MEDS ORDERED: ONDANSETRON ODT 4 MG TABLET TL PRN (19:37)
[2022-10-03] MEDS ORDERED: ALBUTEROL NEB 2.5 MG/3 ML INH PRN (19:44)
[2022-10-03] MEDS ORDERED: levoFLOXacin 500 MG/100 ML 500 MG/100 ML BAG IV ONE (20:00)
[2022-10-03] MEDS ORDERED: hydrALAZINE 10 MG TABLET PO PRN (20:25)
[2022-10-03] MEDS: LACTATED RINGERS 1,000 ML IV SCH (20:58)
[2022-10-03] MEDS: GABAPENTIN 300 MG CAPSULE PO SCH (21:10)
[2022-10-03] MEDS: INSULIN LISPRO 300 UNIT/3 ML PEN SUBQ SCH (21:11)
[2022-10-03] MEDS: POTASSIUM CHLOR 10 MEQ/100 ML 10 MEQ/100 ML BAG IV SCH ×2 (22:34→23:59)
[2022-10-04] MEDS: SODIUM CHLORIDE FLUSH 0.9% 10 ML SYRINGE IVP SCH ×4 (00:09→21:12)
[2022-10-04] MEDS: POTASSIUM CHLOR 10 MEQ/100 ML 10 MEQ/100 ML BAG IV SCH ×2 (01:15→02:41)
[2022-10-04 06:08] LABS: BASOPHILS % (AUTO) 0.1 %; HCT - HEMATOCRIT 39.2 % (37.0-47.0); HGB - HEMOGLOBIN 12.7 g/dL (12.0-16.0); LYMPHOCYTES # (AUTO) 0.6 10^3/uL (1.5-3.5); LYMPHOCYTES % (AUTO) 5.7 %; MEAN CORPUSCULAR HEMOGLOBIN 30.4 pg (27.0-31.0); MEAN CORPUSCULAR HGB CONC 32.4 g/dL (32.0-36.0); MEAN CORPUSCULAR VOLUME 93.8 fL (81.0-99.0); MEAN PLATELET VOLUME 8.6 fL (7.9-10.8); MONOCYTES # (AUTO) 0.1 10^3/uL (0.0-1.0); MONOCYTES % (AUTO) 1.2 %; NEUTROPHILS # (AUTO) 9.9 10^3/uL (1.5-6.6); NEUTROPHILS % (AUTO) 92.3 %; PLT - PLATELET COUNT 238 10^3/uL (130-450); RED BLOOD COUNT 4.18 10^6/uL (4.20-5.40); RED CELL DISTRIBUTION WIDTH 13.2 % (12.0-15.0); WHITE BLOOD COUNT 10.8 x10^3/uL (4.8-10.8)
[2022-10-04 06:17] LABS: CALCIUM 9.1 mg/dL (8.5-10.3); CREATININE 0.9 mg/dL (0.4-1.0); POTASSIUM 4.6 mmol/L (3.5-5.0)
--- NOTE | 2022-10-04 07:35 | PROVIDER PROGRESS NOTE ---
Subjective - Prog Note Date Prog Note Date: 10/04/22 Prog Note Time: 16:16 - Subjective Pt reports feeling: Improved Subjective: Very irritated at being here. She complains that she cannot get any sleep at night. She also did not want to be here in the first place. [place] [facility]. She states that if she is not well enough to leave here tomorrow on that the basis of discharge criteria, she will leave and drive herself to [facility]. She does not have a history of diabetes. She is firm and stating that it is the lack of p.o. intake over the last day and a half that is caused the elevation of glucose. Glucose in the emergency room was 307 on first blood draw. Fasting this morning was 144. A1c is 5.6%. The patient did get dexamethasone in the emergency room. But the steroid was given to her after her labs were drawn. She is also asking why her home medications have not been resumed. I explained to her that her blood pressure was initially low. And we have held her blood pressure medications. As her blood pressure comes up we will be resuming her medications. But other medications such as calcium, vitamin D, statin, vitamin C, and zinc are usually not given his regular medicines. Current Medications - Current Medications Current Medications: Active Medications Acetaminophen (Acetaminophen 325 Mg Tablet) 650 mg PO Q4HR PRN PRN Reason: Pain 1 to 4, or Fever Albuterol (Albuterol Neb 2.5 Mg/3 Ml) 2.5 mg INH Q4H PRN PRN Reason: Shortness of Air/Wheezing Albuterol/Ipratropium (Ipratropium/Albuterol 3 Ml Neb) 3 ml INH Q4H PRN PRN Reason: Shortness of Air/Wheezing Budesonide (Budesonide 0.5 Mg/2 Ml Neb) 0.5 mg INH RTBID LIZ Enoxaparin Sodium (Enoxaparin 40 Mg/0.4 Ml Syringe) 40 mg SUBQ DAILY LIZ Gabapentin (Gabapentin 300 Mg Capsule) 300 mg PO QPM LIZ Last Admin: 10/03/22 21:10 Dose: 300 mg Hydralazine HCl (Hydralazine 10 Mg Tablet) 10 mg PO Q6H PRN PRN Reason: Blood Pressure Lactated Ringer's (Lr) 1,000 mls @ 83.333 mls/hr IV .Q12H [facility] Last Infusion: 10/03/22 23:01 Dose: 83.333 mls/hr Levofloxacin (Levaquin 250 Mg/50 Ml) 250 mg in 50 mls @ 50 mls/hr IV Q24H [facility] Insulin Human Lispro (Insulin Lispro 300 Unit/3 Ml Pen) 0 unit SUBQ 0800,1200,1600,2100 [facility]; Protocol Last Admin: 10/03/22 21:11 Dose: 4 unit Methylprednisolone (Methylprednisolone Succinate 40 Mg/Ml Vial) 40 mg IVP DAILY [facility] Ondansetron HCl (Ondansetron Odt 4 Mg Tablet) 4 mg TL Q6HR PRN PRN Reason: Nausea / Vomiting Ondansetron HCl (Ondansetron 4 Mg/2 Ml Vial) 4 mg IVP Q6HR PRN PRN Reason: Nausea / Vomiting Sodium Chloride (Sodium Chloride Flush 0.9% 10 Ml Syringe) 10 ml IVP PRN PRN PRN Reason: NEEDED PER PROVIDER ORDERS Sodium Chloride (Sodium Chloride Flush 0.9% 10 Ml Syringe) 10 ml IVP 0100,0900,1700 [facility] Last Admin: 10/04/22 00:09 Dose: Not Given Verapamil HCl [Verapamil ER] 240 mg PO DAILY 12/18/15 trandolapriL [Trandolapril] 4 mg PO DAILY 12/18/15 Pravastatin Sodium [Pravachol] 20 mg PO QPM 05/29/20 Objective - Vital Signs/Intake & Output Reviewed Vital Signs: Yes Vital Signs: Vital Signs x48h Temp Pulse Pulse Resp BP Pulse Ox O2 Flow Rate 10/04/22 06:45 2 10/04/22 05:10 36.8 C 103 H 20 120/63 94 2 10/04/22 00:11 36.7 C 80 20 94/63 95 2 Intake & Output: Intake & Output 10/01/22 10/02/22 10/03/22 10/04/22 23:59 23:59 23:59 23:59 Intake Total 670.833 295 Balance 670.833 295 - Objective General Appearance: positive: No acute distress, Alert (Oriented elderly female who is well coiffed, hair up in a chignon. eyeliner in place. NC on. able to speak in full sentences and no respiratory distress) Eyes Bilateral: positive: PERRL, EOMI ENT: positive: No signs of dehydration Neck: positive: No JVD. negative: Stiff neck Respiratory: positive: No respiratory distress, Wheezes (faint and scattered), Other (no cough, rinorrhea, coryza). negative: Rales, Rhonchi Cardiovascular: positive: Regular rate & rhythm Abdomen: positive: Non-tender, No organomegaly, Nml bowel sounds Skin: positive: Warm, Dry Extremities: positive: Full ROM, No pedal edema Neurologic/Psychiatric: positive: Oriented x3, CN's nml (2-12), Motor nml - Lab Results Fish Bones: 10/04/22 05:41 10/04/22 05:41 Other Labs: Lab Results x24hrs 10/04/22 10/04/22 10/04/22 Range/Units 05:41 05:41 00:05 WBC 10.8 (4.8-10.8) x10^3/uL RBC 4.18 L (4.20-5.40) 10^6/uL Hgb 12.7 (12.0-16.0) g/dL Hct 39.2 (37.0-47.0) % MCV 93.8 (81.0-99.0) fL MCH 30.4 (27.0-31.0) pg MCHC 32.4 (32.0-36.0) g/dL RDW 13.2 (12.0-15.0) % Plt Count 238 (130-450) 10^3/uL MPV 8.6 (7.9-10.8) fL Neut # (Auto) 9.9 H (1.5-6.6) 10^3/uL Lymph # (Auto) 0.6 L (1.5-3.5) 10^3/uL [place] # (Auto) 0.1 (0.0-1.0) 10^3/uL Eos # (Auto) 0.0 (0.0-0.7) 10^3/uL Baso # (Auto) 0.0 (0.0-0.1) 10^3/uL Absolute Nucleated RBC 0.00 x10^3/uL Nucleated RBC % 0.0 /100WBC Sodium 139 (135-145) mmol/L Potassium 4.6 (3.5-5.0) mmol/L Chloride 106 (101-111) mmol/L Carbon Dioxide 23 (21-32) mmol/L Anion Gap 10.0 (6-13) BUN 21 H (6-20) mg/dL Creatinine 0.9 (0.4-1.0) mg/dL Estimated GFR (MDRD) 60 L (>89) Glucose 144 H (70-100) mg/dL POC Whole Bld Glucose 225 H (70 - 100) mg/dL Calcium 9.1 (8.5-10.3) mg/dL Total Bilirubin (0.2-1.0) mg/dL AST (10-42) IU/L ALT (10-60) IU/L Alkaline Phosphatase (42-121) IU/L Total Protein (6.7-8.2) g/dL Albumin (3.2-5.5) g/dL Globulin (2.1-4.2) g/dL Albumin/Globulin Ratio (1.0-2.2) Lipase (22-51) U/L Nasal Adenovirus (PCR) Nasal B. parapertussis DNA (PCR) Nasal Coronavir 229E PCR Nasal Coronavir HKU1 PCR Nasal Coronavir NL63 PCR Nasal Coronavir OC43 PCR Nasal Enterovir/Rhinovir PCR Nasal Influenza B PCR Nasal Influenza A PCR Nasal Parainfluen 1 PCR Nasal Parainfluen 2 PCR Nasal Parainfluen 3 PCR Nasal Parainfluen 4 PCR Nasal RSV (PCR) Nasal B.pertussis DNA PCR Nasal C.pneumoniae (PCR) Jong Human Metapneumo PCR Nasal M.pneumoniae (PCR) Nasal SARS-CoV-2 (PCR) 10/03/22 10/03/22 10/03/22 Range/Units 20:55 18:54 18:54 WBC 8.3 (4.8-10.8) x10^3/uL RBC 4.10 L (4.20-5.40) 10^6/uL Hgb 12.7 (12.0-16.0) g/dL Hct 38.6 (37.0-47.0) % MCV 94.1 (81.0-99.0) fL MCH 31.0 (27.0-31.0) pg MCHC 32.9 (32.0-36.0) g/dL RDW 13.1 (12.0-15.0) % Plt Count 211 (130-450) 10^3/uL MPV 8.5 (7.9-10.8) fL Neut # (Auto) 7.7 H (1.5-6.6) 10^3/uL Lymph # (Auto) 0.5 L (1.5-3.5) 10^3/uL [place] # (Auto) 0.1 (0.0-1.0) 10^3/uL Eos # (Auto) 0.0 (0.0-0.7) 10^3/uL Baso # (Auto) 0.0 (0.0-0.1) 10^3/uL Absolute Nucleated RBC 0.00 x10^3/uL Nucleated RBC % 0.0 /100WBC Sodium 137 (135-145) mmol/L Potassium 2.8 L (3.5-5.0) mmol/L Chloride 100 L (101-111) mmol/L Carbon Dioxide 25 (21-32) mmol/L Anion Gap 12.0 (6-13) BUN 22 H (6-20) mg/dL Creatinine 1.1 H (0.4-1.0) mg/dL Estimated GFR (MDRD) 48 L (>89) Glucose 307 H (70-100) mg/dL POC Whole Bld Glucose 294 H (70 - 100) mg/dL Calcium 8.7 (8.5-10.3) mg/dL Total Bilirubin 0.5 (0.2-1.0) mg/dL AST 23 (10-42) IU/L ALT 13 (10-60) IU/L Alkaline Phosphatase 53 (42-121) IU/L Total Protein 7.2 (6.7-8.2) g/dL Albumin 3.8 (3.2-5.5) g/dL Globulin 3.4 (2.1-4.2) g/dL Albumin/Globulin Ratio 1.1 (1.0-2.2) Lipase 24 (22-51) U/L Nasal Adenovirus (PCR) Nasal B. parapertussis DNA (PCR) Nasal Coronavir 229E PCR Nasal Coronavir HKU1 PCR Nasal Coronavir NL63 PCR Nasal Coronavir OC43 PCR Nasal Enterovir/Rhinovir PCR Nasal Influenza B PCR Nasal Influenza A PCR Nasal Parainfluen 1 PCR Nasal Parainfluen 2 PCR Nasal Parainfluen 3 PCR Nasal Parainfluen 4 PCR Nasal RSV (PCR) Nasal B.pertussis DNA PCR Nasal C.pneumoniae (PCR) Jong Human Metapneumo PCR Nasal M.pneumoniae (PCR) Nasal SARS-CoV-2 (PCR) 10/03/22 Range/Units 15:50 WBC (4.8-10.8) x10^3/uL RBC (4.20-5.40) 10^6/uL Hgb (12.0-16.0) g/dL Hct (37.0-47.0) % MCV (81.0-99.0) fL MCH (27.0-31.0) pg MCHC (32.0-36.0) g/dL RDW (12.0-15.0) % Plt Count (130-450) 10^3/uL MPV (7.9-10.8) fL Neut # (Auto) (1.5-6.6) 10^3/uL Lymph # (Auto) (1.5-3.5) 10^3/uL [place] # (Auto) (0.0-1.0) 10^3/uL Eos # (Auto) (0.0-0.7) 10^3/uL Baso # (Auto) (0.0-0.1) 10^3/uL Absolute Nucleated RBC x10^3/uL Nucleated RBC % /100WBC Sodium (135-145) mmol/L Potassium (3.5-5.0) mmol/L Chloride (101-111) mmol/L Carbon Dioxide (21-32) mmol/L Anion Gap (6-13) BUN (6-20) mg/dL Creatinine (0.4-1.0) mg/dL Estimated GFR (MDRD) (>89) Glucose (70-100) mg/dL POC Whole Bld Glucose (70 - 100) mg/dL Calcium (8.5-10.3) mg/dL Total Bilirubin (0.2-1.0) mg/dL AST (10-42) IU/L ALT (10-60) IU/L Alkaline Phosphatase (42-121) IU/L Total Protein (6.7-8.2) g/dL Albumin (3.2-5.5) g/dL Globulin (2.1-4.2) g/dL Albumin/Globulin Ratio (1.0-2.2) Lipase (22-51) U/L Nasal Adenovirus (PCR) NOT DETECTED Nasal B. parapertussis DNA (PCR) NOT DETECTED Nasal Coronavir 229E PCR NOT DETECTED Nasal Coronavir HKU1 PCR NOT DETECTED Nasal Coronavir NL63 PCR NOT DETECTED Nasal Coronavir OC43 PCR NOT DETECTED Nasal Enterovir/Rhinovir PCR DETECTED A Nasal Influenza B PCR NOT DETECTED Nasal Influenza A PCR NOT DETECTED Nasal Parainfluen 1 PCR NOT DETECTED Nasal Parainfluen 2 PCR NOT DETECTED Nasal Parainfluen 3 PCR NOT DETECTED Nasal Parainfluen 4 PCR NOT DETECTED Nasal RSV (PCR) NOT DETECTED Nasal B.pertussis DNA PCR NOT DETECTED Nasal C.pneumoniae (PCR) NOT DETECTED Jong Human Metapneumo PCR NOT DETECTED Nasal M.pneumoniae (PCR) NOT DETECTED Nasal SARS-CoV-2 (PCR) NOT DETECTED ABX Reporting Has patient been on IV antibiotics over the past 48 hours?: Yes Assessment/Plan - Problem List (1) Acute respiratory failure with hypoxia Impression: Chest x-ray is without acute cardiopulmonary process. Cough is no longer present. Comfortable lung exam. Still requiring 2 L nasal cannula. Plan: Etiology is URI with rhinovirus. She has no history of asthma or emphysema. She does not give any history of a progressive dyspnea exertion such as congestive heart failure.There is no chest pain indicating coronary ischemia. She has no risk of DVT with PE. I would anticipate that she should be clear in the next 24 to 48 hours. We will check room air sats. If she feels that she is safe to go home tomorrow we will plan for discharge. If she still needs to stay in the hospital, she is informed that she will be leaving. She will have a friend drive her to [facility]. In the meantime, DuoNeb every 4 hours as needed albuterol 2.5 mg every 4 hours as needed, Pulmicort 0.5 twice daily and methylprednisolone 40 mg IV push daily will be continued. The admitting provider did start her on Levaquin daily. That will be continued as well but I will change her over to p.o. for total of 5 days. She does not have bacterial pneumonia and no evidence of bronchitis on exam. Her primary care provider, Dr Munguia, checked in with me. She wanted the case presented, we discussed treatment, and she will check in with the patient. (2) Hyperglycemia Impression: Patient is adamant that she does not have diabetes. She has not been on any steroids. A1c indicates that the hyperglycemia is acute and new. At this point we are just going to control with sliding scale insulin. In the outpatient setting she will need follow-up with her primary care provider. (3) Hypertension Impression: For which she is on a calcium channel dante and ARCADIO inhibitor. While here blood pressure has varied between 90 systolic to 140 systolic. I explained to her that I am holding her medications until I know which way her blood pressure is going on a routine basis. When she is consistently elevated I can resume her medications. Qualifiers: Hypertension type: primary hypertension Qualified Code(s): I10 - Essential (primary) hypertension (4) Insomnia Impression: She says that the cough kept her up all night long. The most she slept was 3 hours on October 01. Last night she feels like she started having hallucinations because of the lack of sleep. She is asking for sleeping pill. Plan: Restoril Qualifiers: Insomnia type: due to medical condition Qualified Code(s): G47.01 - Insomnia due to medical condition
[2022-10-04] MEDS: LACTATED RINGERS 1,000 ML IV SCH ×2 (08:30→21:12)
[2022-10-04] MEDS: ENOXAPARIN 40 MG/0.4 ML SYRINGE SUBQ SCH ×2 (08:30→08:38)
[2022-10-04] MEDS: methylPREDNISolone SUCCINATE 40 MG/ML VIAL IVP SCH (08:30)
[2022-10-04] MEDS: BUDESONIDE 0.5 MG/2 ML NEB INH SCH ×2 (08:39→19:10)
[2022-10-04] MEDS: INSULIN LISPRO 300 UNIT/3 ML PEN SUBQ SCH ×4 (08:49→21:11)
[2022-10-04 10:07] LABS: ESTIMATED AVERAGE GLUCOSE 114 mg/dL (70-100); HEMOGLOBIN A1c% 5.6 % (4.27-6.07)
--- NOTE | 2022-10-04 11:35 | PHARMACY PROGRESS NOTE ---
- Best Possible Medication History Admit Date and Time: 10/03/221936 Processed by: Pharmacy Medication History completed: Yes Patient Interview: Completed Secondary Source(s): Pharmacy records As the person ultimately responsible for medication therapy, providers are able to order a medication from an existing home medication list in [facility] via the "Reconcile Routine" prior to Confirmation of that medication by help desk support specialist. Such practice is discouraged except when the physician, in their clinical judgment, deems that a medical need exists for a medication without regard to previous use.
[2022-10-04] MEDS ORDERED: TEMAZEPAM 15 MG CAPSULE PO PRN (16:32)
[2022-10-04] MEDS: IPRATROPIUM/ALBUTEROL 3 ML NEB INH PRN (19:10)
[2022-10-04] MEDS ORDERED: guaiFENesin/DEXTROMETHORPHAN 10 ML UDC PO PRN (19:49)
[2022-10-04] MEDS: GABAPENTIN 300 MG CAPSULE PO SCH (21:17)
[2022-10-05] MEDS: IPRATROPIUM/ALBUTEROL 3 ML NEB INH PRN (07:06)
[2022-10-05] MEDS: BUDESONIDE 0.5 MG/2 ML NEB INH SCH (07:06)
[2022-10-05] MEDS: INSULIN LISPRO 300 UNIT/3 ML PEN SUBQ SCH ×2 (08:44→13:11)
[2022-10-05] MEDS: ENOXAPARIN 40 MG/0.4 ML SYRINGE SUBQ SCH (08:45)
[2022-10-05] MEDS: SODIUM CHLORIDE FLUSH 0.9% 10 ML SYRINGE IVP SCH (08:46)
[2022-10-05] MEDS: methylPREDNISolone SUCCINATE 40 MG/ML VIAL IVP SCH (08:46)
[2022-10-05] MEDS ORDERED: levoFLOXacin 250 MG TABLET PO SCH (09:00)
--- NOTE | 2022-10-05 09:26 | Discharge Plan ---
Discharge Plan Problem Reviewed?: Yes Disposition: Home, Self Care Condition: Stable Diet: Regular Activity Restrictions: Activity as Tolerated Shower Restrictions: No Driving Restrictions: No Health Concerns: You presented to the walk-in clinic because you have been having 4 to 5 days of cough, runny nose, weepy eyes. The cough is very severe. Nonproductive. In the walk-in clinic your oxygen level was very low. Normal is 100% oxygen saturation on room air. You were 83%. They gave you a DuoNeb treatment and sent you to our emergency room. You did not feel short of breath, your main complaint was cough. You are an ex-smoker that smoked for 42 years and smoked about a pack and a half a day. We suspect that you may have early onset emphysema. Even though you quit smoking in 1983. We found you to have an infection with a virus called "rhinovirus". You responded very nicely to nebulizer treatments, empiric antibiotics, steroids, and a cough medicine. Your oxygen level returned to normal. During your stay you asked for a sleep aid and we gave you Restoril 15 mg. That worked very well for you. Plan of Treatment: Please see your primary care for follow-up. Dr. Munguia call the hospital on October 04 to go over your case so she knows that you were in the hospital. Ask her if she can give you the sleep aid, Restoril, that you would like to take at home If you notice that you are having a little bit more coughing or wheezing than normal, please asked Dr. Munguia to refer you for pulmonary function studies. This will help you and Dr. Munguia decide if you truly have emphysema or not. Care Goals: To return to your usual baseline activities. Assessment: Patient is alert, oriented, ambulating without assistance. Oxygen desat test at discharge is with normal saturation at rest and with exertion and she does not require oxygen No Smoking: If you smoke, Please STOP! Call for help. Follow-up with: Yris Munguia MD [Primary Care Provider] -
--- NOTE | 2022-10-05 09:30 | DISCHARGE SUMMARY ---
"Discharge Summary Admit Date: 10/03/22 Discharge Date: 10/05/22 Discharging Provider: Karrie Andrews MD Primary Care Provider: Yris Munguia MD Code Status: Attempt Resuscitation Condition at Discharge: Stable Discharge Disposition: 01 Home, Self Care - DIAGNOSES Discharge Diagnoses with Status of Each Condition: 1. Acute respiratory failure with hypoxia 2. History of tobacco abuse 3. Hyperglycemia 4. Hypertension 5. Insomnia 6. UTI - HPI History of Present Illness: Patient is in [place]. Physician is in [place]. No one is at bedside. 81 yo F with PMH of HTN, HLD, chronic LBP, and former smoker presented to the ER from Walk-in clinic due to Hypoxia with c/o 4 day h/o URI symptoms and Shortness of breath. At baseline, pt does not feel short of breath unless she walks up steep hills. On Sunday, she began to have a sore throat. On Sunday, she had coryza/sneezing. On Sunday, she began to cough, no sputum, +chest congestion. She coughed all night long, so went to a Walk-in clinic today. Her SpO2 was 83% RA. They gave her a Duoneb and sent her to the ER. Pt says that she does not feel short of breath. She did smoke from age [age]/for 42 years; she smoked 1.5 ppd. She quit in 1983/39 years ago. Pt denies other symptoms. No N/V/abdo pain. No F/C. No BM change. No urinary symptoms. No CP. No known h/o DM. In the ER, BP 178/72, HR 112, SpO2 85% RA, 95% 2L NC O2, K 2.8, Rhinovirus +, K 2.8, Glc 307. CXR: NAD EKG: Sinus Tachy at 108, no STTw changes. Pt was given Duonebs, Decadron 8 mg PO x 1, KCl 10 mEq IV in the ER. 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 coli Enterovirus and rhinovirus noted on viral PCR - HOSPITAL COURSE Hospital Course: She was placed on MedSurg and stayed stable through her stay. She gradually had decreasing requirements of oxygen to maintain O2 sats. She was on room air on the day of discharge any oxygen desat test at rest and exertion showed her to have normal oxygenation. Coughing was her main complaint. Treatment included IV steroids, DuoNeb, and empiric Levaquin. By the time of discharge she is completed 3 days of Levaquin and I am not going to be continuing that. Her c hest x-ray shows no infiltrate. I think this is a simple exacerbation of probably low-grade emphysema due to rhinovirus. The diagnosis of emphysema is new to her. She is a cigarette smoker that stopped smoking in the 1980s. If she has any further complaints or symptoms that are pulmonary, she should be considered for pulmonary function studies. Otherwise she is discharged without any change in her medications. No additions. The only [id number] medication I would recommend is Robitussin DM. During her stay sleep is an issue because of chronic back pain, and the noise of hospitalization. She really liked the Restoril we gave her to sleep at night. I have declined giving her prescription at discharge for Restoril. I have asked her to ask her primary care provider for Restoril 15 mg at night if the primary care provider feels it is appropriate. On the day of discharge she was complaining of urgency, frequency, dysuria. Urinalysis had trace leukocyte Estrace, white cells, few bacteria, few squamous. Even though was a contaminated specimen I sent her home on Bactrim for 3 days. Urine culture subsequently grew out E. coli. Discharge exam had a temp of 36.3. Heart rate 69. Blood pressure 154/65. Respirations 18. 92% on room air. With ambulation she remained stable. She is a slender, alert, short statured female who looks younger than stated age. Very well groomed and well coiffed. Make-up in place. Here. Shotty neck adenopathy but no bruits. Lungs are completely clear. At this point she does not have coryza or rhinorrhea. She is walking in her room without any assistance or distress. Regular rate and rhythm. Extremities without edema. Greater than 30 minutes spent coordinating discharge. This document was made in part using voice recognition software. While efforts are made to proofread this document, sound alike and grammatical errors may occur. - ALLERGIES Allergies/Adverse Reactions: Allergies Allergy/AdvReac Type Severity Reaction Status Date / Time cephalexin monohydrate * AdvReac Cramps Verified 05/28/20 23:55 [From Keflex] - MEDICATIONS Home Medications: Ambulatory Orders Medication Instructions Recorded Confirmed Verapamil HCl [Verapamil ER] 240 mg PO DAILY 12/18/15 10/04/22 trandolapriL [Trandolapril] 4 mg PO DAILY 12/18/15 10/04/22 Pravastatin Sodium [Pravachol] 20 mg PO QPM 05/29/20 10/04/22 Ascorbic Acid [Vitamin C] 1 tab PO DAILY 10/04/22 10/04/22 Biotin 1 tab PO DAILY 10/04/22 10/04/22 Calcium Carbonate [Calcium] 1 tab PO DAILY 10/04/22 10/04/22 Cholecalciferol (Vitamin D3) 1 cap PO DAILY 10/04/22 10/04/22 [D3-5000] Gabapentin [Neurontin] 1 cap PO HS 10/04/22 10/04/22 Zinc Gluconate [Zinc] 1 tab PO Q72H 10/04/22 10/04/22 Sulfamethox/Trimeth 800/160 1 tablet PO BID 3 Days #6 tablet 10/05/22 [Bactrim Ds] guaiFENesin/DEXTROMETHORPHAN 10 ml PO Q6HR PRN ea 10/05/22 [Robitussin Dm] - LABS Result Diagrams: 10/04/22 05:41 10/04/22 05:41"
[2022-10-05 10:48] LABS: BILIRUBIN,URINE NEGATIVE (NEGATIVE); GLUCOSE, URINE (UA) NEGATIVE (NEGATIVE); KETONES,URINE (UA) NEGATIVE (NEGATIVE); LEUKOCYTE ESTERASE, URINE TRACE (NEGATIVE); NITRITE,URINE NEGATIVE (NEGATIVE); OCCULT BLOOD,URINE SMALL (NEGATIVE); PH,URINE 5.5 PH (5.0-7.5); PROTEIN,URINE NEGATIVE (NEGATIVE); UROBILINOGEN,URINE 0.2 (NORMAL) E.U./dL (NORMAL)
[2022-10-05 10:50] LABS: CLARITY,URINE CLEAR (CLEAR)
[2022-10-05 11:00] LABS: RBC,URINE 0-5 /HPF (0-5); SQUAMOUS EPITHELIAL CELL,UR FEW Squamous (<= Few)
[2022-10-05 11:01] LABS: BACTERIA,URINE Few /HPF (None Seen)
[2022-10-05 11:41] VITALS: BP 148/84
== END 2022-10-05 12:45 | disposition home or self-care (01) | DRG 190 ==
LOC: EDUNIT# → ED 15:20 → MS2 19:37
PROVIDERS: ADMIT Internal Medicine; ATTEND Specialist
DX: J43.9 Emphysema, unspecified (principal); R09.02 Hypoxemia; J96.01 Acute respiratory failure with hypoxia; N39.0 Urinary tract infection, site not specified; Z20.822 Contact with and (suspected) exposure to COVID-19; Z87.891 Personal history of nicotine dependence; R00.0 Tachycardia, unspecified; E87.6 Hypokalemia; R73.9 Hyperglycemia, unspecified; I10 Essential (primary) hypertension; E78.5 Hyperlipidemia, unspecified; M54.50 Low back pain, unspecified; G89.29 Other chronic pain; Z66 Do not resuscitate; B96.20 Unspecified Escherichia coli [E. coli] as the cause of diseases classified elsewhere; J06.9 Acute upper respiratory infection, unspecified; B97.89 Other viral agents as the cause of diseases classified elsewhere; G47.01 Insomnia due to medical condition
CPT/HCPCS: 36415; 71045; 80048; 80053; 81001; 83036; 83690; 85025; 87086; 87181; 87633; 93005; 94640; 99285; A9270; J1650; J7120; J7626; J8540

== ENCOUNTER 2022-10-06 08:00 | Outpatient (CLI) | payer MEDICARE, OTHER ==
[2022-10-06 20:07] LABS: BILIRUBIN,URINE NEGATIVE (NEGATIVE); GLUCOSE, URINE (UA) NEGATIVE (NEGATIVE); KETONES,URINE (UA) TRACE mg/dL (NEGATIVE); LEUKOCYTE ESTERASE, URINE TRACE (NEGATIVE); NITRITE,URINE NEGATIVE (NEGATIVE); OCCULT BLOOD,URINE NEGATIVE (NEGATIVE); PROTEIN,URINE NEGATIVE (NEGATIVE); UROBILINOGEN,URINE 0.2 (NORMAL) E.U./dL (NORMAL)
[2022-10-06 20:11] LABS: CLARITY,URINE CLEAR (CLEAR)
[2022-10-06 20:20] LABS: BACTERIA,URINE Rare /HPF (None Seen); RBC,URINE 0-5 /HPF (0-5); SQUAMOUS EPITHELIAL CELL,UR RARE Squamous (<= Few); WBC,URINE >25 /HPF (0-5)
[2022-10-06 20:21] LABS: MUCUS,URINE Moderate Strands
== END 2022-10-06 23:59 | disposition home or self-care (01) ==
LOC: LAB.S 08:00
PROVIDERS: ATTEND Internal Medicine
DX: N39.0 Urinary tract infection, site not specified (principal)
CPT/HCPCS: 81001; 87086

== ENCOUNTER 2022-10-16 07:34 | Outpatient (CLI) | payer MEDICARE, OTHER ==
[2022-10-16 14:41] LABS: BASOPHILS % (AUTO) 0.3 %; EOSINOPHILS # (AUTO) 0.1 10^3/uL (0.0-0.7); HCT - HEMATOCRIT 38.8 % (37.0-47.0); HGB - HEMOGLOBIN 12.2 g/dL (12.0-16.0); LYMPHOCYTES # (AUTO) 1.4 10^3/uL (1.5-3.5); LYMPHOCYTES % (AUTO) 22.5 %; MEAN CORPUSCULAR HEMOGLOBIN 30.6 pg (27.0-31.0); MEAN CORPUSCULAR HGB CONC 31.4 g/dL (32.0-36.0); MEAN CORPUSCULAR VOLUME 97.2 fL (81.0-99.0); MEAN PLATELET VOLUME 8.7 fL (7.9-10.8); MONOCYTES # (AUTO) 0.7 10^3/uL (0.0-1.0); MONOCYTES % (AUTO) 10.8 %; NEUTROPHILS # (AUTO) 4.1 10^3/uL (1.5-6.6); NEUTROPHILS % (AUTO) 63.9 %; PLT - PLATELET COUNT 257 10^3/uL (130-450); RED BLOOD COUNT 3.99 10^6/uL (4.20-5.40); RED CELL DISTRIBUTION WIDTH 13.5 % (12.0-15.0); WHITE BLOOD COUNT 6.4 x10^3/uL (4.8-10.8)
[2022-10-16 14:57] LABS: ALBUMIN 3.8 g/dL (3.2-5.5); ALBUMIN/GLOBULIN RATIO 1.3 (1.0-2.2); ALKALINE PHOSPHATASE 49 IU/L (42-121); ALT ALANINE AMINOTRANSFERASE 15 IU/L (10-60); AST ASPARTATE AMINOTRANSFERASE 18 IU/L (10-42); BILIRUBIN,TOTAL 0.6 mg/dL (0.2-1.0); BUN - BLOOD UREA NITROGEN 25 mg/dL (6-20); CALCIUM 9.2 mg/dL (8.5-10.3); CARBON DIOXIDE - CO2 26 mmol/L (21-32); CHLORIDE 107 mmol/L (101-111); CHOL/HDL RATIO 2.9 (<4.4); CHOLESTEROL 197 mg/dL; GFR - MDRD 53 (>89); GLUCOSE 96 mg/dL (70-100); HDL CHOLESTEROL 67 mg/dL; LDL CHOLESTEROL,CALCULATED 121 mg/dL; LDL/HDL RATIO 1.8 (<4.4); POTASSIUM 4.2 mmol/L (3.5-5.0); SODIUM 139 mmol/L (135-145); TOTAL PROTEIN 6.8 g/dL (6.7-8.2); TRIGLYCERIDES 44 mg/dL; VLDL CHOLESTEROL 9 mg/dL
[2022-10-16 15:11] LABS: THYROID STIMULATING HORMONE 2.9 uIU/mL (0.34-5.60)
[2022-10-16 21:57] LABS: ESTIMATED AVERAGE GLUCOSE 120 mg/dL (70-100); HEMOGLOBIN A1c% 5.8 % (4.27-6.07)
== END 2022-10-16 07:35 | disposition home or self-care (01) ==
LOC: LAB.S 07:34
PROVIDERS: ATTEND Internal Medicine
DX: I10 Essential (primary) hypertension (principal); E78.00 Pure hypercholesterolemia, unspecified; C50.919 Malignant neoplasm of unspecified site of unspecified female breast; R73.9 Hyperglycemia, unspecified
CPT/HCPCS: 36415; 80053; 80061; 82306; 83036; 83721; 84443; 85025

== ENCOUNTER 2022-12-11 11:07 | Emergency (ER) | payer MEDICARE, OTHER ==
[2022-12-11] MEDS ORDERED: LIDOCAINE PATCH 5% TOP STA (11:32)
[2022-12-11] MEDS ORDERED: DEXAMETHASONE 10 MG/ML VIAL IM STA (11:32)
[2022-12-11] MEDS ORDERED: KETOROLAC 30 MG/ML VIAL IVP STA (11:32)
--- NOTE | 2022-12-11 11:32 | ED Physician Documentation ---
PD HPI BACK PAIN - Stated complaint Stated Complaint: BACK PX - Chief complaint Chief Complaint: Back Pain - History obtained from History obtained from: Patient - History of Present Illness Timing - onset: How many days ago (2) - Additional information Additional information: 82yoF presents by Private vehicle from home for 1 day of mid thoracic muscle spasms. Patient states that she was sitting in her chair when office and she felt a sharp pain in her back. Patient has chronic back pain and states that "my entire spine has been redone". Pain waxes and wanes. Currently pain-free. Took 1 Robaxin with minimal improvement, took codeine last night to help her sleep. Review of Systems Constitutional: denies: Fever, Chills Respiratory: denies: Dyspnea, Cough, Wheezing : denies: Dysuria, Frequency, Hesitancy, Unable to Void, Incontinent Musculoskeletal: reports: Back pain. denies: Neck pain, Extremity pain, Joint pain, Extremity swelling, Joint swelling PD PAST MEDICAL HISTORY - Past Medical History Cardiovascular: Hypertension, High cholesterol Respiratory: None, Other (denies history of COPD/asthma. She states she is active with golfing and exercise without dyspnea/wheezing. ) Neuro: None Endocrine/Autoimmune: None GI: None FORMULA CHECKER: None : None HEENT: None Psych: None Musculoskeletal: Chronic back pain Derm: None - Past Surgical History Past Surgical History: Yes Ortho: Other - Present Medications Home Medications: Ambulatory Orders Medication Instructions Recorded Confirmed Verapamil HCl [Verapamil ER] 240 mg PO DAILY 12/18/15 12/11/22 trandolapriL [Trandolapril] 4 mg PO DAILY 12/18/15 12/11/22 Pravastatin Sodium [Pravachol] 20 mg PO QPM 05/29/20 12/11/22 Gabapentin [Neurontin] 1 cap PO HS 10/04/22 12/11/22 Lidocaine Patch 5% [Lidoderm Patch] 1 each TOP DAILY #10 patch 12/11/22 traMADol [Ultram] 50 mg PO Q4-6H #10 tablet 12/11/22 - Allergies Allergies/Adverse Reactions: Allergies Allergy/AdvReac Type Severity Reaction Status Date / Time cephalexin monohydrate * AdvReac Cramps Verified 12/11/22 11:19 [From [employer]] - Social History Does the pt smoke?: No Smoking Status: Never smoker Does the pt drink ETOH?: No Does the pt have substance abuse?: No - Immunizations Immunizations are current?: Yes - POLST Patient has POLST: No PD ED PE NORMAL - Vitals Vital signs reviewed: Yes - General General: Alert and oriented X 3, No acute distress, Well developed/nourished - HEENT HEENT: Atraumatic - Neck Neck: Supple, no meningeal sign - Cardiac Cardiac: No murmur, Strong equal pulses - Abdomen Abdomen: Soft, Non tender, Non distended - Back Back: No CVA TTP, No spinal TTP, Other (R sided paraspinal muscle spasm lower th oracic region) - Derm Derm: Normal color, Warm and dry, No rash - Extremities Extremities: No deformity, No tenderness to palpate, Normal ROM s pain, No edema - Neuro Neuro: Alert and oriented X 3, 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 Significant history of degenerative changes. Patient counseled on differential diagnosis. With no history of trauma and no midline tenderness no utility for imaging at this time. Pain medication sent to pharmacy of choice. Departure - Departure Disposition: 01 Home, Self Care Clinical Impression: Back pain Qualifiers: Back pain location: thoracic back pain Chronicity: acute Back pain laterality: right Qualified Code(s): M54.6 - Pain in thoracic spine Condition: Stable Instructions: Muscle Spasm Prescriptions: Lidocaine Patch 5% [Lidoderm Patch] 1 each TOP DAILY #10 patch traMADol [Ultram] 50 mg PO Q4-6H #10 tablet Comments: Take these medications with Tylenol. Do gentle stretching exercises or get a massage to help with muscle spasms. Follow-up with your primary care physician as needed. Please do not hesitate to return to the emergency department for any new or worsening concerns. Discharge Date/Time: 12/11/22 12:45
[2022-12-11] MEDS ORDERED: KETOROLAC 30 MG/ML VIAL IM STA (11:54)
--- OUTSIDE RECORDS SUMMARY | 2022-12-11 11:57 | EXTERNAL MEDICAL SUMMARY RPT | Continuity of Care Document ---
Author Name Unknown Address [address] [place] [address] Phone Organization [facility] Address [address] [phone] Phone Care Team Providers Care [employer] Name Role Phone Anitra Patient RegistrarCindy Unavailable Unavailable Medications date description facility 2022-10-03 00:00 [facility] 2022-10-03 00:00 [facility] [place] 2022-10-03 00:00 [facility] [place]
[2022-12-11 13:12] VITALS: BP 140/80; O2SAT 98
== END 2022-12-11 12:45 | disposition home or self-care (01) ==
LOC: ED 11:07
DX: M62.830 Muscle spasm of back (principal)
CPT/HCPCS: 96372; 99283; A9270

== ENCOUNTER 2023-01-27 12:22 | Outpatient (CLI) | payer MEDICARE, OTHER ==
[~2023-01-27 12:22] MED LIST changes: -GADOBUTROL 7.5 MMOL/7.5 ML VIAL ONE; +GADOTERATE MEGLUMINE 10 MMOL/20 ML VIAL ONE
[2023-01-27] MEDS ORDERED: GADOTERATE MEGLUMINE 10 MMOL/20 ML VIAL IVP ONE (13:57)
--- NOTE | 2023-01-29 11:44 | MRI Report ---
PROCEDURE: MRI lumbar spine with and without contrast INDICATIONS: LUMBAR RADICULOPATHY CONTRAST: CLARISCAN 12.2ML TECHNIQUE: Noncontrast sagittal T1 spin echo and T2 fast spin echo, sagittal STIR, axial T1 and T2 fast spin ech o through the lumbar spine. In cases with scoliosis, additional coronal T2 fast spin echo may be per formed. After the administration of contrast, sagittal and axial T1 spin echo with fat saturation th rough the lumbar spine. COMPARISON: None. FINDINGS: Image quality: Excellent. Alignment and curvature: There is normal bony alignment. Marrow: Degenerative endplate changes noted with Modic type I endplate changes at L1-2, increased in prior exam. L3-4 interbody fusion with anterior hardware, and L4-5 posterior lateral fusion with post erior mary and screw instrumentation. Decompressive laminectomy noted at L1, L2 and L3. Appropriate po stoperative enhancement noted involving the posterior paraspinal soft tissues at L1-2 Spinal cord: Conus medullaris terminates at the L1 level. Visualized spinal cord demonstrates yordan l signal, without suspicious enhancement. Paraspinous soft tissues: Right renal simple cyst T12-L1: Normal in appearance. L1-L2: Disc space narrowing with left subarticular disc protrusion/extrusion with inferior migrati on to the mid L2 level, new from the prior exam. Displacement of the descending nerve roots, and mild to moderate central stenosis present. Severe bilateral foraminal stenosis present. L2-L3: Disc space narrowing with circumferential disc bulge and posterior decompression. No centra l stenosis present. Hypertrophic facet joints associated with severe bilateral foraminal stenosis L3-L4: Discectomy and fusion. Posterior decompression. No central stenosis. Hypertrophic facet join ts contribute to moderate central stenosis L4-L5: Circumferential disc bulge and hypertrophic facet joints at. Posterior lateral fusion with i nstrumentation. No central stenosis. No foraminal stenosis L5-S1: Disc height is maintained. Posterior instrumentation No central stenosis. No foraminal steno sis IMPRESSION: Focal subarticular left disc protrusion/extrusion with inferior migration at L1-2 displaces the desce nding nerve roots and results in mild to moderate central stenosis. Severe bilateral foraminal stenos is Decompressive laminectomies L1, L2 and L3 with instrumentation at L3-4 and L4-5 Reviewed by: Ubaldo Bourgeois MD on 01/29/2023 10:42 AM AKDT Approved by: Ubaldo Bourgeois MD on 01/29/2023 10:42 AM EMELYN Station ID: [id number]
== END 2023-01-27 12:23 | disposition home or self-care (01) ==
LOC: DI 12:22
PROVIDERS: ATTEND Physician Assistant
DX: M51.16 Intervertebral disc disorders with radiculopathy, lumbar region (principal); M51.36 Other intervertebral disc degeneration, lumbar region; M48.061 Spinal stenosis, lumbar region without neurogenic claudication; M47.26 Other spondylosis with radiculopathy, lumbar region
CPT/HCPCS: 72158; A9575

== ENCOUNTER 2023-01-27 12:23 | Outpatient (CLI) | payer MEDICARE, OTHER ==
[2023-01-27 12:48] LABS: CREATININE 1.1 mg/dL (0.6-1.3)
== END 2023-01-27 12:24 | disposition home or self-care (01) ==
LOC: LAB 12:23
PROVIDERS: ATTEND Internal Medicine
DX: M54.32 Sciatica, left side (principal)
CPT/HCPCS: 36415; 82565

== ENCOUNTER 2023-01-31 11:21 | Emergency (ER) | payer MEDICARE, OTHER ==
[2023-01-31 11:55] VITALS: BP 137/63; O2SAT 95
--- NOTE | 2023-01-31 12:13 | ED Physician Documentation ---
History of Present Illness - Stated complaint Stated Complaint: LT SIDE LUMP - Chief complaint Chief Complaint: General - History obtained from History obtained from: Patient - Additonal information Additional information: 82-year-old woman presents to the emergency department for the evaluation of a painless mass in her right flank. She not sure how long its been there but she thinks its been there for "a while." PD PAST MEDICAL HISTORY - Past Medical History Cardiovascular: Hypertension, High cholesterol Respiratory: None, Other (denies history of COPD/asthma. She states she is active with golfing and exercise without dyspnea/wheezing. 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 : None HEENT: None Psych: None Musculoskeletal: Chronic back pain Derm: None - Past Surgical History Past Surgical History: Yes Ortho: Other - Present Medications Home Medications: Ambulatory Orders Medication Instructions Recorded Confirmed Verapamil HCl [Verapamil ER] 240 mg PO DAILY 12/18/15 12/11/22 trandolapriL [Trandolapril] 4 mg PO DAILY 12/18/15 12/11/22 Pravastatin Sodium [Pravachol] 20 mg PO QPM 05/29/20 12/11/22 Gabapentin [Neurontin] 1 cap PO HS 10/04/22 12/11/22 Lidocaine Patch 5% [Lidoderm Patch] 1 each TOP DAILY #10 patch 12/11/22 traMADol [Ultram] 50 mg PO Q4-6H #10 tablet 12/11/22 - Allergies Allergies/Adverse Reactions: Allergies Allergy/AdvReac Type Severity Reaction Status Date / Time cephalexin monohydrate * AdvReac Cramps Verified 12/11/22 11:19 [From [employer]] - Social History Does the pt smoke?: No Smoking Status: Never smoker Does the pt drink ETOH?: No Does the pt have substance abuse?: No - Immunizations Immunizations are current?: Yes - POLST Patient has POLST: No PD ED PE NORMAL - Vitals Vital signs reviewed: Yes - General General: Alert and oriented X 3, No acute distress - Extremities Extremities: Other (There is a mobile nontender nonfluctuant rubbery mass in the posterior axillary line below the rib cage.) - Neuro Neuro: Alert and oriented X 3, Normal speech Results - Vitals Vitals: Vital Signs - 24 hr 01/31/23 11:41 Temperature 36.3 C L Heart Rate 77 Respiratory 18 Rate Blood Pressure 137/63 H O2 Saturation 95 Oxygen O2 Source Room air PD Medical Decision Making - ED course ED course: Discussed with the patient that no emergency medical condition is present and she can safely follow-up with her primary care physician for evaluation of this. Departure - Departure Disposition: 01 Home, Self Care Clinical Impression: Subcutaneous mass Condition: Good Record reviewed to determine appropriate education?: Yes Comments: As discussed, I suspect the lump represents a benign lipoma but eventually will need specific imaging for it. There is no emergency here and you can follow-up with your primary care physician for this testing.
== END 2023-01-31 12:17 | disposition home or self-care (01) ==
LOC: ED 11:21
DX: R22.2 Localized swelling, mass and lump, trunk (principal); I10 Essential (primary) hypertension; E78.00 Pure hypercholesterolemia, unspecified; Z79.899 Other long term (current) drug therapy
CPT/HCPCS: 99281; 99282

== ENCOUNTER 2023-07-23 13:27 | Outpatient (CLI) | payer MEDICARE, OTHER ==
[2023-07-23] MEDS: ALBUTEROL 1 PUFF INH STA (14:52)
== END 2023-07-23 13:28 | disposition home or self-care (01) ==
LOC: RT 13:27
PROVIDERS: ATTEND Internal Medicine
DX: R06.09 Other forms of dyspnea (principal)
CPT/HCPCS: 94060; 94729

== ENCOUNTER 2023-08-28 13:05 | Outpatient (CLI) | payer MEDICARE, OTHER | END 2023-08-28 13:06 | disposition home or self-care (01) | LOC: DI 13:05 | PROVIDERS: ATTEND Internal Medicine | DX: R06.09 Other forms of dyspnea (principal) | CPT/HCPCS: 93307 ==

== ENCOUNTER 2023-11-02 08:00 | Outpatient (CLI) | payer MEDICARE, OTHER ==
--- NOTE | 2023-11-02 20:57 | XRAY Report ---
PROCEDURE: Hand 3+V RT INDICATIONS: RIGHT PINKY FINGER PAIN TECHNIQUE: 3 views of the hand(s) acquired. COMPARISON: None. FINDINGS: Bones: No fractures or dislocations. Mild to moderate osteoarthritic changes throughout right-hand a nd wrist joints are seen more notably involving first CMC joint and fifth PIP joint. No gross bony er osive changes. No suspicious bony lesions. Soft tissues: No suspicious soft tissue calcifications or masses. IMPRESSION: No acute right hand fracture or dislocation. Osteoarthritis throughout right-hand and wrist joints as above. No gross bony erosive changes. Reviewed by: Crispin Chun MD on 11/02/2023 8:56 PM PDT Approved by: Crispin Chun MD on 11/02/2023 8:56 PM PDT Station ID: [id number]
== END 2023-11-02 23:59 | disposition home or self-care (01) ==
LOC: DI.S 08:00
PROVIDERS: ATTEND Emergency Medicine
DX: M19.041 Primary osteoarthritis, right hand (principal); M19.031 Primary osteoarthritis, right wrist